=== PATIENT | male | born 1950 | race Caucasian/White ===

== ENCOUNTER → 2017-02-19 | Outpatient (CLI) | payer OTHER ==
[~2017-02-19] MED LIST: ASPI1TAB83 PO; ATOR-24 PO; LISI-461 PO; MULT-897 PO; OMEG10007 PO; OMEP20TA PO
[2017-02-19 10:16] LABS: BLOOD UREA NITROGEN 17 mg/dl (7-18); BUN/CREATININE RATIO 14.5 (10-20); CARBON DIOXIDE 31 mmol/L (21-32); CHLORIDE 103 mmol/L (98-107); CHOLESTEROL 152 mg/dl (0-200); GLUCOSE 106 mg/dl (70-99); POTASSIUM 4.4 mmol/L (3.5-5.1); SODIUM 140 mmol/L (136-145); TRIGLYCERIDES 176 mg/dl (0-150); VERY LOW DENSITY LIPOPROT CALC 35 mg/dl
[2017-02-19 10:17] LABS: CALCIUM 9.4 mg/dl (8.5-10.1)
[2017-02-19 10:23] LABS: CHOLESTEROL/HDL RATIO 4.1; HDL CHOLESTEROL 37 mg/dl; LDL CHOLESTEROL CALCULATED 80 mg/dl
== END | disposition home or self-care (01) ==
LOC: C.LAB 08:47
PROVIDERS: ATTEND Family Medicine
DX: Z00.00 Encounter for general adult medical examination without abnormal findings (principal); I10 Essential (primary) hypertension; E78.5 Hyperlipidemia, unspecified; C61 Malignant neoplasm of prostate

== ENCOUNTER → 2017-04-30 | Outpatient (CLI) | payer OTHER | END | disposition home or self-care (01) | LOC: C.LABSPEC 14:52 | PROVIDERS: ATTEND Urology | DX: R30.0 Dysuria (principal); R39.89 Other symptoms and signs involving the genitourinary system; R33.9 Retention of urine, unspecified ==

== ENCOUNTER → 2017-05-22 | Outpatient (CLI) | payer OTHER | END | disposition home or self-care (01) | LOC: C.LAB 07:06 | PROVIDERS: ATTEND Urology | DX: C61 Malignant neoplasm of prostate (principal) ==

== ENCOUNTER → 2017-12-01 | Outpatient (CLI) | payer OTHER | END | disposition home or self-care (01) | LOC: C.LABBC 07:12 | PROVIDERS: ATTEND Urology | DX: R97.20 Elevated prostate specific antigen [PSA] (principal) ==

== ENCOUNTER → 2018-01-19 | Outpatient (CLI) | payer OTHER ==
[2018-01-19 11:55] LABS: BLOOD UREA NITROGEN 24 mg/dl (7-18); CREATININE 1.38 mg/dl (0.60-1.40)
== END | disposition home or self-care (01) ==
LOC: C.LABBC 07:20
PROVIDERS: ATTEND Urology
DX: R97.20 Elevated prostate specific antigen [PSA] (principal)

== ENCOUNTER → 2018-02-02 | Outpatient (CLI) | payer OTHER ==
[~2018-02-02] MED LIST changes: +GADAVIST IV PRN
--- NOTE | 2018-02-02 11:26 | DIAGNOSTIC IMAGING REPORT ---
PROSTATE MRI COMBO CLINICAL HISTORY: 68 years-old Male presenting with R97.20 Elevated prostate specific antigen (PSA)AUTH# [id number] 6. History of prostate cancer with elevated PSA TECHNIQUE: Multisequence, multiplanar MR imaging of the prostate was performed before and after the administration of intravenous contrast. Additional postprocessing was performed on a separate [employer] workstation by the radiologist for 3-D volumetric segmentation of the prostate and contouring of region(s) of interest (WALLY) for targeting. IV contrast: 9.9 mL Gadavist. COMPARISON: None. FINDINGS: Prostate: The prostate measures 4.2 x 5.7 x 6.0 cm (DynaCAD prostate boundary segmentation volume 59.9 mL). Moderate changes of benign prostatic hyperplasia. Precontrast T1 weighted imaging demonstrates no evidence of intrinsic T1 hyperintensity to suggest hemorrhage. Suspicious lesion(s) described below: Lesion (DynaCAD WALLY) 1: Location: Left posterior transition zone at the mid gland. The lesion does not extend across the midline. Size: 1.1 x 0.8 mm (as measured on ADC for PZ lesion and T2WI for TZ lesion) T2W: 3: Heterogeneous signal intensity with obscured margins. No evidence of extraprostatic extension, seminal vesicle invasion, or neurovascular bundle involvement. DWI: 3. Focal mildly/moderately hypointense on ADC and isointense/mildly hyperintense on high b-value DWI. DCE: Positive. Focal enhancement corresponding to a suspicious finding, earlier or contemporaneous with adjacent normal tissue. PI-RADS: 3. The presence of clinically significant cancer is equivocal. Seminal vesicles normal. Bladder: Bladder wall thickening likely indicating chronic outlet obstruction. Bowel: Visualized portion of the rectum normal. Peritoneum: No free fluid in the pelvis. Lymph nodes: No lymphadenopathy in the visualized portion of the pelvis. Vasculature: Iliac vessels patent. Abdominal wall: Trace amount of fluid within the right inguinal canal and the upper right scrotum. Osseous structures: Normal bone marrow signal intensity. IMPRESSION: 1. 1.1 cm lesion in the left posterior transition zone at the mid gland. PI-RADS: 3. The presence of clinically significant cancer is equivocal. This lesion has been segmented for targeted biopsy. 2. Benign prostatic hyperplasia. Electronically signed by: Catracho Contreras M.D. 02/02/2018 3:58 PM Dictated Date/Time: 02/02/2018 9:49 AM
== END | disposition home or self-care (01) ==
LOC: C.MRIBC 07:53
PROVIDERS: ATTEND Urology
DX: R97.20 Elevated prostate specific antigen [PSA] (principal); N42.9 Disorder of prostate, unspecified; N40.0 Benign prostatic hyperplasia without lower urinary tract symptoms

== ENCOUNTER → 2018-02-26 | Outpatient (CLI) | payer OTHER ==
[~2018-02-26] MED LIST changes: -GADAVIST IV PRN
== END | disposition home or self-care (01) ==
LOC: C.LAB 07:52
PROVIDERS: ATTEND Urology
DX: C61 Malignant neoplasm of prostate (principal); N41.9 Inflammatory disease of prostate, unspecified

== ENCOUNTER → 2018-05-27 | Outpatient (CLI) | payer OTHER ==
[2018-05-27 10:54] LABS: BASO % 0.3 %; BASO ABS # 0.02 K/uL (0-0.2); EOS % 2.6 %; EOS ABS # 0.19 K/uL (0-0.5); HEMATOCRIT 40.1 % (42-52); HEMOGLOBIN 13.6 g/dL (14.0-18.0); IG# 0.02 K/uL (0.00-0.02); LYMPH % 32.1 %; LYMPH ABS # 2.34 K/uL (1.2-3.4); MEAN CELL VOLUME 87.9 fL (80-100); MEAN CORPUSCULAR HEMOGLOBIN 29.8 pg (25-34); MEAN CORPUSCULAR HGB CONC 33.9 g/dl (32-36); MEAN PLATELET VOLUME 10.1 fL (7.4-10.4); MONO % 7.7 %; MONO ABS # 0.56 K/uL (0.11-0.59); NEUT ABS # 4.16 K/uL (1.4-6.5); PLATELET COUNT 176 K/uL (130-400); RED CELL DISTRIBUTION WIDTH CV 13.4 % (11.5-14.5); WHITE BLOOD COUNT 7.29 K/uL (4.8-10.8)
[2018-05-27 11:22] LABS: ALBUMIN 3.6 gm/dl (3.4-5.0); ALKALINE PHOSPHATASE 88 U/L (45-117); ALT/SGPT 59 U/L (12-78); AST/SGOT 34 U/L (15-37); BLOOD UREA NITROGEN 21 mg/dl (7-18); CALCIUM 8.6 mg/dl (8.5-10.1); CARBON DIOXIDE 27 mmol/L (21-32); CHOLESTEROL 122 mg/dl (0-200); CREATININE 1.59 mg/dl (0.60-1.40); GLUCOSE 108 mg/dl (70-99); LDL CHOLESTEROL CALCULATED 53 mg/dl; POTASSIUM 4.6 mmol/L (3.5-5.1); SODIUM 138 mmol/L (136-145); TOTAL PROTEIN 7.2 gm/dl (6.4-8.2)
[2018-05-27 11:55] LABS: HEMOGLOBIN A1C 5.7 % (4.5-5.6)
== END | disposition home or self-care (01) ==
LOC: C.LABBC 07:02
PROVIDERS: ATTEND Neuromusculoskeletal Medicine & OMM
DX: I10 Essential (primary) hypertension (principal); E78.5 Hyperlipidemia, unspecified; R73.01 Impaired fasting glucose; E66.9 Obesity, unspecified

== ENCOUNTER 2019-02-03 10:39 | Inpatient (IN) ==
--- NOTE | 2018-12-08 10:24 | PAT Medication Instructions ---
Medication Instructions Date of Service December 08, 2018 Home Medications aspirin [Aspirin Low Dose] 81 mg PO QAM atorvastatin 40 mg PO HS fish oil-dha-epa 1,200 mg PO BID lisinopril 10 mg PO QAM meloxicam 15 mg PO Q OTHER DAY multivitamin 1 tab PO QAM omeprazole 20 mg PO QAM ASK your surgeon for instructions meloxicam 15 mg PO Q OTHER DAY STOP taking 2 weeks before surgery (or as soon as possible if surgery is within 2 weeks) fish oil-dha-epa 1,200 mg PO BID DO NOT take the morning of surgery lisinopril 10 mg PO QAM multivitamin 1 tab PO QAM Take morning of surgery With a small sip of water, OTHERWISE NOTHING TO EAT OR DRINK AFTER MIDNIGHT: aspirin [Aspirin Low Dose] 81 mg PO QAM omeprazole 20 mg PO QAM Take evening before surgery atorvastatin 40 mg PO HS Other Notes If you have any questions please call us at [phone] or [phone] or [phone] or [phone]
--- NOTE | 2018-12-08 11:30 | Anesthesiology Consultation ---
Date of Service December 08, 2018 Assessment & Plan (1) Encounter for pre-operative examination: Chart Review Chart Review: Acceptable Risk for Surgery and Patient seen in Pre Admission Testing Teaching & Discussion Pre-Anesthesia Teaching/Discussion Notes: Instructed NPO after midnight before surgery,except medications with 15 cc of water. Medication instructions provided according to the PAT guidelines. History Surgery Operation Date: 01/06/19 07:00 Proposed Procedures p Right Reverse Total Shoulder Arthroplasty - Tod Devine, Height/Weight Height: 5 ft 5 in Weight: 102.7 kg Allergies Allergy/AdvReac Type Severity Reaction Status Date / Time No Known Allergies Allergy Unknown Verified 12/01/18 09:43 Medications Home Medications Medication Instructions Recorded Confirmed Last Taken aspirin [Aspirin Low Dose] 81 mg PO QAM 12/01/18 12/01/18 Unknown atorvastatin 40 mg PO HS 12/01/18 12/01/18 Unknown fish oil-dha-epa 1,200 mg PO BID 12/01/18 12/01/18 Unknown lisinopril 10 mg PO QAM 12/01/18 12/01/18 Unknown meloxicam 15 mg PO Q OTHER DAY 12/01/18 12/01/18 Unknown multivitamin 1 tab PO QAM 12/01/18 12/01/18 Unknown omeprazole 20 mg PO QAM 12/01/18 12/01/18 Unknown Past Medical History Medical History CKD (chronic kidney disease) BASELINE CREATININE 1.5-1.6 RANGE PER CHART REVIEW GERD (gastroesophageal reflux disease) CONTROLLED High cholesterol History of prostate cancer NO CHEMO OR RADIATION Hypertension Obesity Past Surgical History Surgical History History of back surgery L4-L5 LAMINECTOMY= 11/11/15= GRADE 1 VIEW, MAC 4, ETT 8 AT [facility] History of carpal tunnel release of both wrists History of total right knee replacement X2 Hx of foot surgery LEFT Hx of prostate biopsy X3 Past Anesthesia History No Hx of Anesthesia Complications and No Family Hx of Anesthesia Complications History of PONV No Motion Sickness Screening History of Motion Sickness: No Social History Smoking Status: Never smoker Do You Dip or Chew Tobacco: Yes (1 PACK PER 7 DAYS X YEARS; ADVISED NOT TO CHEW AM DOS) Hx Alcohol Use: Yes Alcohol type: beer and wine alcohol intake frequency: holidays/special occasions only Hx Substance Use: No Exercise / Class Metabolic Activity III < 4 Walking/Shop/Light housework Review of Systems Patient denies chest pain, shortness of breath, cough, wheezing, palpitations. Physical Exam Vital Signs VITALS BP 136/81 P 73 TEMP 97.8 SP02 94%RA RESP 18 PHYSICAL Mildly decreased cervical extension Full TMJ range of motion. TMD 3.5 finger breaths Mallampati Score 2 Dentition: poor dentition; several "worn" teeth, missing molars, several caps "all over" Lungs: clear throughout to auscultation Cardiac: regular rate and rhythm, no murmurs noted Spine: normal Carotid arteries: negative bruit Extremities: no edema Trimmed hernandez Short neck* Testing Electrocardiogram Date: 12/08/18 NSR at 64bpm. Inferior infarct (Inferior infarct cited on 02/12/2006 EKG at [facility] per cardio). Chest X-Ray Date: 12/08/18 Findings: + NAD The cardiomediastinal heart is top normal for projection, and there is atherosclerotic calcification of the thoracic aorta. There are healed right- sided rib fractures. Laboratory Results 12/08/18 11:46 12/08/18 11:46 Blood Type AB Negative 12/08/18 11:46 Antibody Screen NEGATIVE 12/08/18 11:46 PT 10.3 Seconds (9.0-12.0) 12/08/18 11:46 INR 1.0 (0.9-1.1) 12/08/18 11:46 APTT 25.6 Seconds (21.0-31.0) 12/08/18 11:46 12/08/18 GFR 45.0
--- NOTE | 2018-12-08 12:26 | XRay Report ---
TWO VIEW CHEST CLINICAL HISTORY: Preoperative examination. FINDINGS: PA and lateral chest radiographs are compared to study dated 11/11/2015. The cardiomediastin al heart is top normal for projection, and there is atherosclerotic calcification of the thoracic aor ta. The lungs and pleural spaces are clear. There is no pneumothorax. Degenerative change is noted t hroughout the thoracic spine. There are healed right-sided rib fractures. IMPRESSION: No active disease in the chest. Electronically signed by: Shmuel Sánchez M.D. 12/08/2018 12:24 PM
[2018-12-08 13:21] LABS: Basophils # (auto) 0.01 K/uL (0-0.2); Basophils % (auto) 0.1 %; Eosinophils # (auto) 0.08 K/uL (0-0.5); Eosinophils % (auto) 1.2 %; Hematocrit (blood only) 39.7 % (42-52); Hemoglobin 13.5 g/dL (14.0-18.0); Immature Granulocytes # (auto) 0.02 K/uL (0.00-0.02); Immature Granulocytes % (auto) 0.3 %; Lymphocytes # (auto) 2.11 K/uL (1.2-3.4); Lymphocytes % (auto) 31.6 %; Mean Corpuscular Volume 85.7 fL (80-100); Mean Platelet Volume 10.2 fL (7.4-10.4); Neutrophils # (auto) 4.05 K/uL (1.4-6.5); Neutrophils % (auto) 60.8 %; Platelet Count 171 K/uL (130-400); RDW Coefficient of Variation 13.4 % (11.5-14.5); RDW Standard Deviation 41.4 fL (36.4-46.3); Red Blood Count 4.63 M/uL (4.7-6.1); White Blood Count 6.67 K/uL (4.8-10.8)
[2018-12-08 13:38] LABS: Partial Thromboplastin Ratio 0.9; Partial Thromboplastin Time 25.6 Seconds (21.0-31.0); Prothrombin Time 10.3 Seconds (9.0-12.0)
[2018-12-08 13:41] LABS: BUN Creatinine Ratio 14.7 (10-20); Calcium 8.6 mg/dl (8.5-10.1); Est GFR (African American) 52.1; Potassium 4.3 mmol/L (3.5-5.1)
--- NOTE | 2019-02-02 20:31 | History & Physical Report ---
Date of Service February 02, 2019 Assessment & Plan (1) Rotator cuff arthropathy of right shoulder: We will proceed with a reverse right shoulder arthroplasty. Postoperatively he will be placed in an arm sling and kept overnight for postop medical management. He plans to use [facility] discharge. Present on Admission?: Yes History of Present Illness Chief Complaint: Rotator cuff arthropathy of the right shoulder Primary Care Provider: Erick Jane DO Hasmukh is a pleasant 68-year-old male who is been having a greater than 10-year history of increasing right shoulder pain and weakness. He does not recall any traumas. Over the last 10 years his shoulder has been getting worse. He has trouble doing anything above chest level. X-rays and clinical examination have been diagnostic for rotator cuff arthropathy of the right shoulder. After failing conservative treatment, he has elected proceed with a right reverse shoulder arthroplasty. Allergies Allergy/AdvReac Type Severity Reaction Status Date / Time No Known Allergies Allergy Unknown Verified 02/01/19 07:39 Home Medications Home Medications Medication Instructions Recorded Confirmed Type aspirin [Aspirin Low Dose] 81 mg PO QAM 12/01/18 02/01/19 History atorvastatin 40 mg PO HS 12/01/18 02/01/19 History fish oil-dha-epa 1,200 mg PO BID 12/01/18 02/01/19 History lisinopril 10 mg PO QAM 12/01/18 02/01/19 History meloxicam 15 mg PO Q OTHER DAY 12/01/18 02/01/19 History multivitamin 1 tab PO QAM 12/01/18 02/01/19 History omeprazole 20 mg PO QAM 12/01/18 02/01/19 History Past Med/Surg History Social History Preferred Language: Portuguese Communication Ability: Effective Clothing Worker Required: No Beliefs That Will Affect Care: None Current Living Situation: Spouse Other Information That Helps Us Care for You: No Feels Safe at Home: Yes Safety Concerns: Feels Safe At This Time Smoking Status: Never smoker Tobacco Type: smokeless tobacco Do You Dip or Chew Tobacco: Yes (1 PACK PER 7 DAYS X YEARS; ADVISED NOT TO CHEW AM DOS) Second Hand Exposure: No Tobacco Cessation Education Requested by Patient: No Hx Alcohol Use: Yes Alcohol type: beer and wine Hx Substance Use: No Review of Systems All systems reviewed & are unremarkable except as noted in HPI & below Physical Exam Constitutional: WD/WN, vitals as above Eyes: PERRL, conjunctivae normal, anicteric sclerae ENMT: external ear and nose normal, oropharynx normal Neck: trachea midline, no thyromegaly Respiratory: normal respiratory effort Cardiovascular: RRR, no murmur, no edema Gastrointestinal (Abdomen): normal bowel sounds, soft, nontender, no hepatosplenomegaly Musculoskeletal: Physical examination of the right shoulder reveals decreased range of motion and significant weakness. There is tenderness palpation along the anterior glenohumeral joint line. The right upper extremity is neurovascularly intact. Psychiatric: A+Ox3, euthymic affect Results & Data Diagnostic Findings Radiographs of the right shoulder show some signs of osteoarthritis with blunting of the greater tuberosity and some superior migration of the humeral head on the glenoid.
[~2019-02-03 10:39] MED LIST changes: +ACETAMINOPHEN 500 MG TAB PO SCH; -ASPI1TAB83 PO; -ATOR-24 PO; +BUPIVACAINE 0.5 % 5 MG/1 ML PF 10ML VIAL ONE; +CEFAZOLIN 2000MG 2,000 MG/15 ML SYR IV SCH; +FAMOTIDINE 20 MG TAB PO SCH; +GABAPENTIN 300 MG PO SCH; -LISI-461 PO; +LR 15ML/HR IV SCH; +LR 500ML BOLUS IV SCH; +LR 60ML/HR IV SCH; -MULT-897 PO; -OMEG10007 PO; -OMEP20TA PO; +ROPIVACAINE 0.5% HCL/PF 150 MG, BUPIVACAINE 0.5% MPF 30 ML, EPINEPHrine 30MG/30ML (OR U... INFIL SCH; +TRANEXAMIC ACID 1,000 MG **IV Intra-op IV SCH; +TRANEXAMIC ACID 1,000 MG **IV Pre-op IV SCH
--- NOTE | 2019-02-03 12:26 | History & Physical Bridge Note ---
Date of Service February 03, 2019 History & Physical Bridge Note I have examined the patient, reviewed the History & Physical and in the interval since the performance of the History & Physical I have noted the following changes of clinical significance: no changes noted
[2019-02-03] MEDS ORDERED: fentaNYL citrate 100 MCG/2 ML VIAL ONE (12:28)
[2019-02-03] MEDS ORDERED: MIDAZOLAM HCL 1 MG/ML 2ML VIAL ONE (12:28)
[2019-02-03] MEDS ORDERED: ORTHO JOINT ANESTHETIC ONE (12:51)
[2019-02-03] MEDS ORDERED: POVIDONE-IODINE OP SOLN 30 ML BTL ONE (12:51)
[2019-02-03] MEDS ORDERED: ePHEDrine sulfate 50 MG/ML AMP IV PRN (13:24)
[2019-02-03] MEDS ORDERED: ONDANSETRON INJ 2 MG/ML 2 ML VIAL IV PRN ×2 (13:24→17:37)
[2019-02-03] MEDS ORDERED: fentaNYL citrate 100 MCG/2 ML VIAL IV PRN (13:24)
[2019-02-03] MEDS ORDERED: ATROPINE SULFATE 0.1 MG/ML 10ML SYR IV PRN (13:24)
[2019-02-03] MEDS ORDERED: DEXAMETHASONE SOD INJ 4 MG/ML VIAL ONE (14:30)
[2019-02-03] MEDS ORDERED: PROPOFOL IV EMULSION 10 MG/ML 20 ML VIAL IV ONE (14:30)
[2019-02-03] MEDS ORDERED: ONDANSETRON INJ 2 MG/ML 2 ML VIAL ONE (14:30)
[2019-02-03] MEDS ORDERED: SUCCINYLCHOLINE CHLORIDE 20 MG/ML 10 ML VIAL ONE (14:30)
[2019-02-03] MEDS ORDERED: ROCURONIUM BROMIDE 10 MG/ML 5 ML VIAL ONE (14:30)
--- NOTE | 2019-02-03 15:45 | Operative Report ---
Post Operative Report Pre & Post Diagnosis Operation Date: 02/03/19 12:40 Pre-Op Diagnosis: Chronic Rotator Cuff Tear, Right Shoulder Post-Op Diagnosis: Chronic Rotator Cuff Tear, Right Shoulder Procedure Operation Date: 02/03/19 12:40 Actual Procedures p Right Reverse Total Shoulder Arthroplasty(Right) - Tod Devine DO Surgeon Tod Devine DO Hop Grower Tod Madden PAC Estimated Blood Loss 350 Findings Consistent with Post-Op Diagnosis Specimens Right humeral head Complications none Disposition Disposition: Recovery Room Indications Hasmukh is a pleasant 69-year-old male who is been complaining of chronic increasing right shoulder pain. X-rays and clinical examination were diagnostic for rotator cuff arthropathy of the right shoulder. After failing conservative treatment, he elected to proceed with a reverse right shoulder arthroplasty. Description of Procedure Implants used: I used a [employer]omet Comprehensive reverse total shoulder arthroplasty system with a size 12 press fit mini humeral stem, a standard humeral tray and a standard humeral bearing, a 28 mm standard baseplate with a 6.5 mm central screw and superior and inferior locking screws, and a size 41 mm eccentric glenosphere. The patient arrived at [facility] for the above procedure. There were seen in the preoperative holding area and the operative extremity was identified and signed. They were given a preoperative antibiotic and an interscalene nerve block. They were taken back to the operating room, laid on table in supine position, and put under general anesthesia. They were then put into the beachchair position. The shoulder was then prepped and draped in sterile fashion. A timeout was done and the patient in the operative extremity was properly identified. A deltopectoral approach was used. Dissection was taken down through the fascia and the deltoid was retracted laterally and the conjoined tendon was retracted medially. The anterior shoulder was exposed. The long head of the biceps tend on was tenodesed to the upper border of the pectoralis major. The subscapularis was then released off the lesser tuberosity with a centimeter of cuff tissue remaining. The inferior capsule was released and the humeral head was dislocated. A canal finding reamer was sent down the center of the humeral canal. Sequential reaming up to a size 12 reamer was done. Off that reamer, a proximal humeral resection guide was placed. The proximal humerus was resected at 135 of inclination and 25 of retroversion. Osteophytes were then removed and the glenoid was exposed. Time was spent doing a complete capsular and labral release. A Profyle signature guide was then attached onto the anterior rim of the glenoid. A 3.2 mm Steinmann pin was then placed in the reverse total shoulder arthroplasty hole. The glenoid baseplate was then reamed. The final size 28 mm standard baseplate was then impacted in the place. A 6.5 mm central screw was then placed followed by superior and inferior locking screws. A 41 mm eccentric glenoid sphere was then impacted into place. Surrounding soft tissues were then injected with 100 cc an orthopedic pain control cocktail. The proximal humerus was then exposed. Sequential broaching of the humerus up to a size 12 broach was done. Off that broach a standard humeral tray was trialed. The shoulder was then reduced, brought through a full range of motion and felt to be stable. The shoulder was then dislocated and the broach was removed. The final size 12 mini press-fit humeral stem was then impacted into place. A standard humeral bearing was then snapped onto a standard humeral tray and the ring-lock mechanism was engaged. The humeral tray was then impacted onto the humeral stem. The shoulder was once again reduced, brought through a full range of motion and felt to be stable. The subscapularis was then tenodesed back to the lesser tuberosity with transosseous FiberWire sutures and side to side sutures with the arm in 45 of external rotation. A dilute betadyne lavage was then done for 3 minutes. The joint was then irrigated with normal saline solution. Hemostasis was obtained. The skin was then closed with 2-0 Vicryl, 3-0V lock suture, and rolf. A soft dressing and a regular arm sling was placed. The patient was then extubated and transferred to a hospital bed. They were taken to the postanesthesia care unit in stable condition. They tolerated the procedure well. I attest to the content of the Intraoperative Record and any orders documented therein. Any exceptions are noted below.
--- NOTE | 2019-02-03 17:03 | XRay Report ---
XR shoulder RT min 2V routine CLINICAL HISTORY: Post shoulder surgery COMPARISON STUDY: Right shoulder CT 01/04/2019. FINDINGS: Status post reversal total shoulder arthroplasty. The hardware appears intact. No fracture or dislocation. Skin rolf are in place. Old, healed right-sided rib fracture. IMPRESSION: Status post right reverse total shoulder arthroplasty. No evidence for hardware complica tion. Electronically signed by: Celestine Bishop M.D. 02/03/2019 5:02 PM
--- NOTE | 2019-02-03 17:04 | Anesthesiology Progress Note ---
Date of Service February 03, 2019 Anesthesia Post Procedure Vital Signs Vital Signs: Temp Pulse Pulse Resp BP Pulse Ox 02/03/19 16:50 36.2 C L 54 L 14 144/83 H 96 02/03/19 16:40 55 L 14 163/92 H 94 02/03/19 16:30 48 L 16 141/105 H 100 02/03/19 16:20 52 L 16 152/97 H 100 02/03/19 16:11 36.5 C 51 L 16 164/90 H 100 02/03/19 11:06 36.5 C 59 L 20 139/86 97 Notes Mental Status: alert / awake / arousable and participated in evaluation Patient Amnestic to Procedure: Yes Nausea / Vomiting: adequately controlled Pain: adequately controlled Airway Patency, RR, SpO2: stable & adequate BP & HR: stable & adequate Hydration State: stable & adequate Anesthetic Complications: no major complications apparent and Pt Satisfied with anesthetic care
[2019-02-03] MEDS ORDERED: NALOXONE HCL 0.4 MG/1 ML VIAL/CARP IV PRN (17:37)
[2019-02-03] MEDS ORDERED: METOCLOPRAMIDE HCL INJ 5 MG/ML 2 ML VIAL IV PRN (17:37)
[2019-02-03] MEDS ORDERED: HYDROmorphone INJ 0.5 MG/0.5 ML SYR IV PRN (17:37)
[2019-02-03] MEDS ORDERED: SODIUM CHLORIDE 0.9% 1000ML 1,000 ML IV SCH (17:37)
[2019-02-03] MEDS ORDERED: MAGNESIUM HYDROXIDE SUSP 30 ML UDC PO PRN (17:37)
[2019-02-03] MEDS ORDERED: BISACODYL 10 MG SUPP PR PRN (17:37)
[2019-02-03] MEDS ORDERED: OXYCODONE HCL IR 5 MG TAB (IMMEDIATE RELEASE) PO PRN (17:37)
[2019-02-03] MEDS: DOCUSATE SODIUM 100 MG CAP PO SCH (20:21)
[2019-02-03] MEDS: KETOROLAC TROMETHAMINE 15 MG/ML VIAL IV SCH ×2 (20:22→23:27)
[2019-02-03] MEDS ORDERED: SENNA 8.6 MG TAB PO SCH (21:00)
[2019-02-03] MEDS ORDERED: ATORVASTATIN 40 MG TAB PO SCH (21:00)
[2019-02-03] MEDS: ACETAMINOPHEN 500 MG TAB PO SCH (21:33)
[2019-02-03] MEDS: CEFAZOLIN 2000MG 2,000 MG/15 ML SYR IV SCH (21:34)
[2019-02-04] MEDS: CEFAZOLIN 2000MG 2,000 MG/15 ML SYR IV SCH (05:48)
[2019-02-04] MEDS: ACETAMINOPHEN 500 MG TAB PO SCH (05:48)
[2019-02-04] MEDS: KETOROLAC TROMETHAMINE 15 MG/ML VIAL IV SCH (05:48)
[2019-02-04 06:35] LABS: Basophils # (auto) 0.01 K/uL (0-0.2); Basophils % (auto) 0.1 %; Hematocrit (blood only) 36.1 % (42-52); Hemoglobin 12.3 g/dL (14.0-18.0); Immature Granulocytes # (auto) 0.05 K/uL (0.00-0.02); Immature Granulocytes % (auto) 0.3 %; Lymphocytes # (auto) 1.32 K/uL (1.2-3.4); Mean Corpuscular Hgb Conc 34.1 g/dL (32-36); Mean Platelet Volume 9.7 fL (7.4-10.4); Monocytes # (auto) 0.68 K/uL (0.11-0.59); Monocytes % (auto) 4.6 %; Neutrophils # (auto) 12.57 K/uL (1.4-6.5); Platelet Count 182 K/uL (130-400); RDW Coefficient of Variation 13.3 % (11.5-14.5); RDW Standard Deviation 42.7 fL (36.4-46.3); Red Blood Count 4.15 M/uL (4.7-6.1); White Blood Count 14.63 K/uL (4.8-10.8)
[2019-02-04 07:05] LABS: Calcium 8.8 mg/dl (8.5-10.1); Creatinine Clr Calc Pharmacy 41.3 ml/min; Est GFR (African American) 42.4; Est GFR (Non-African American) 36.6; Potassium 4.6 mmol/L (3.5-5.1)
[2019-02-04 07:14] VITALS: BP 139/80; PULSE 58; TEMP 97.5; O2SAT 97
--- NOTE | 2019-02-04 07:44 | Orthopedic Progress Note ---
Date of Service February 04, 2019 Assessment & Plan (1) Rotator cuff arthropathy of right shoulder: Overall is doing very well. Is not having much pain in the shoulder. Is mostly having some back pain at this point but that should resolve on its own. By physical therapy this morning for range of motion exercises. He can be discharged to home later today with oxycodone for pain. He plans to follow-up with outpatient physical therapy at [facility] ([place] He will follow-up with orthopedics in 2 to 3 weeks. Present on Admission?: Yes Subjective Hasmukh was seen and examined at bedside this morning. Overall is doing very well. He is not having any pain in the right shoulder. He is happy with his progress this point. He is having some back pain. It is mostly musculoskeletal back pain. His vital signs of all been stable. He has no other complaints. Physical Exam Musculoskeletal: On physical examination of the right shoulder, the dressing is clean and dry. He is wearing a sling as instructed. He still has some numbness in his right hand. He cannot dorsiflex his wrist yet secondary to the block. Results & Data Vital Signs (Past 12 Hours) Vital Signs Temp Pulse Pulse Resp BP Pulse Ox 02/04/19 07:12 36.4 C L 58 L 16 139/80 97 02/04/19 03:10 36.6 C 66 18 142/78 H 95 02/03/19 22:53 36.5 C 55 L 16 136/68 94 02/03/19 20:05 36.6 C 58 L 16 140/73 97 Laboratory Results H & H 12/08/18 02/04/19 Range/Units 11:46 06:05 Hgb 13.5 L 12.3 L (14.0-18.0) g/dL Hct 39.7 L 36.1 L (42-52) % Coagulation 12/08/18 Range/Units 11:46 INR 1.0 (0.9-1.1) Diagnostic Findings Postoperative x-rays of the right shoulder show the prosthesis to be in anatomic alignment without any evidence of fracture, dislocation, or loosening.
--- NOTE | 2019-02-04 07:45 | Discharge Summary ---
Date of Service February 04, 2019 Admission HPI Per Admitting Provider Hasmukh is a pleasant 68-year-old male who is been having a greater than 10-year history of increasing right shoulder pain and weakness. He does not recall any traumas. Over the last 10 years his shoulder has been getting worse. He has trouble doing anything above chest level. X-rays and clinical examination have been diagnostic for rotator cuff arthropathy of the right shoulder. After failing conservative treatment, he has elected proceed with a right reverse shoulder arthroplasty. Specialty Data Orthopedic H & H 12/08/18 02/04/19 Range/Units 11:46 06:05 Hgb 13.5 L 12.3 L (14.0-18.0) g/dL Hct 39.7 L 36.1 L (42-52) % Coagulation 12/08/18 Range/Units 11:46 INR 1.0 (0.9-1.1) Discharge Data Consultations 02/03/19 17:37 Consult Case Management - Discharge Planning Routine Procedures Performed Operation Date: 02/03/19 12:40 Actual Procedures p Right Reverse Total Shoulder Arthroplasty(Right) - Tod Devine DO Hospital Course (1) Rotator cuff arthropathy of right shoulder: On February 03, 2019 Hasmukh arrived at [facility] and underwent a reverse right shoulder arthroplasty without complication. He had a general anesthetic and a right interscalene nerve block. Postoperatively he was placed in an arm sling and discharged to general orthopedic floors. His hospital course is uneventful. On postop day #1 his H&H was stable and his pain was well controlled. He was having a little bit of muscular pain in his back but that is about it. He was seen by physical therapy and able to do some range of motion exercises. Was then discharged home with outpatient physical therapy at [facility]. He will follow-up with orthopedics in 2 to 3 weeks. Discharge Instructions Home Medications Medication Instructions Recorded Confirmed aspirin [Aspirin Low Dose] 81 mg PO QAM 12/01/18 02/03/19 atorvastatin 40 mg PO HS 12/01/18 02/03/19 fish oil-dha-epa 1,200 mg PO BID 12/01/18 02/03/19 lisinopril 10 mg PO QAM 12/01/18 02/03/19 meloxicam 15 mg PO Q OTHER DAY 12/01/18 02/03/19 multivitamin 1 tab PO QAM 12/01/18 02/03/19 omeprazole 20 mg PO QAM 12/01/18 02/03/19 Previous Rx's Medication Instructions Recorded oxycodone 5 - 10 mg PO Q4H PRN #40 tab 02/04/19
[2019-02-04] MEDS ORDERED: MULTIVITAMIN TAB PO SCH (09:00)
[2019-02-04] MEDS ORDERED: LISINOPRIL 10 MG TAB PO SCH (09:00)
[2019-02-04] MEDS ORDERED: PANTOprazole 40 MG TAB PO SCH (09:00)
[2019-02-04] MEDS ORDERED: ASPIRIN 81 MG ECTAB PO SCH (09:00)
[2019-02-04] MEDS: DOCUSATE SODIUM 100 MG CAP PO SCH (09:11)
--- NOTE | 2019-02-04 10:07 | Anesthesiology Progress Note ---
Date of Service February 04, 2019 Anesthesia Post Procedure Vital Signs Vital Signs: Temp Pulse Pulse Pulse Resp BP Pulse Ox 02/04/19 07:12 36.4 C L 58 L 16 139/80 97 02/04/19 03:10 36.6 C 66 18 142/78 H 95 02/03/19 22:53 36.5 C 55 L 16 136/68 94 02/03/19 20:05 36.6 C 58 L 16 140/73 97 02/03/19 19:07 36.4 C L 50 L 16 137/72 96 02/03/19 18:12 36.2 C L 02/03/19 18:00 47 L 16 158/85 H 100 02/03/19 17:35 48 L 16 145/82 H 100 02/03/19 16:50 36.2 C L 54 L 14 144/83 H 96 02/03/19 16:40 55 L 14 163/92 H 94 02/03/19 16:30 48 L 16 141/105 H 100 02/03/19 16:20 52 L 16 152/97 H 100 02/03/19 16:11 36.5 C 51 L 16 164/90 H 100 02/03/19 11:06 36.5 C 59 L 20 139/86 97 Pain Intensity Right Back: Pain Intensity: 3 Notes Mental Status: alert / awake / arousable and participated in evaluation Nausea / Vomiting: adequately controlled Pain: adequately controlled Airway Patency, RR, SpO2: stable & adequate BP & HR: stable & adequate Hydration State: stable & adequate
== END 2019-02-04 12:54 | disposition home or self-care (01) | DRG 483 ==
LOC: ASU 10:39 → 3E 16:13

== ENCOUNTER 2020-04-08 09:12 | Observation (INO) ==
--- NOTE | 2020-03-14 15:29 | PAT Medication Instructions ---
Medication Instructions Date of Service March 14, 2020 Home Medications Medication Instructions Recorded omeprazole 20 mg tablet,delayed 20 mg PO QAM #90 tab 02/19/20 release atorvastatin 40 mg tablet 40 mg PO HS #90 tab 03/01/20 lisinopril 10 mg tablet 10 mg PO QAM #90 tab 03/01/20 multivitamin 1 tab PO QAM omega-3 fatty acids 1,000 mg capsule 1,000 mg PO QAM omeprazole 20 mg tablet,delayed release 20 mg PO QAM atorvastatin 40 mg tablet 40 mg PO HS lisinopril 10 mg tablet 10 mg PO QAM aspirin 81 mg tablet,delayed release 81 mg PO QAM ASK your prescriber and surgeon aspirin 81 mg tablet,delayed release 81 mg PO QAM STOP taking 2 weeks before surgery (or as soon as possible if surgery is within 2 weeks) omega-3 fatty acids 1,000 mg capsule 1,000 mg PO QAM DO NOT take the morning of surgery multivitamin 1 tab PO QAM lisinopril 10 mg tablet 10 mg PO QAM Take morning of surgery With a small sip of water, OTHERWISE NOTHING TO EAT OR DRINK AFTER MIDNIGHT: omeprazole 20 mg tablet,delayed release 20 mg PO QAM Take evening before surgery atorvastatin 40 mg tablet 40 mg PO HS Other Notes If you have any questions please call us at [phone] or [phone] or [phone] or [phone]
--- NOTE | 2020-03-21 09:52 | Anesthesiology Consultation ---
Date of Service March 21, 2020 Assessment & Plan (1) Encounter for pre-operative examination: Per PAT assessment on 03/21: Travel screen negative. No known COVID-19 positive contacts. No history of COVID-19 testing. No current COVID-19 related symptoms. - S/P Left TKA: 11/09/19: SAB x1 attempt at L3-L4 + PNB at [facility] Chart Review Chart Review: Acceptable Risk for Surgery and Patient seen in Pre Admission Testing Teaching & Discussion Pre-Anesthesia Teaching/Discussion Notes: Instructed NPO after midnight before surgery,except medications with 15 cc of water. Medication instructions provided according to the PAT guidelines. History Surgery Operation Date: 04/08/20 07:30 Proposed Procedures p Right Total Knee Revision - Hilario Soliz MD Height/Weight Height: 5 ft 3 in Weight: 101.1 kg Allergies Allergy/AdvReac Type Severity Reaction Status Date / Time bee venom protein (honey bee) Allergy Unknown ITCHY Verified 03/14/20 11:23 venom-wasp Allergy Unknown ITCHY Verified 03/14/20 11:23 No Known Drug Allergies Allergy Verified 03/05/20 08:05 Medications Home Medications Medication Instructions Recorded Confirmed Last Taken multivitamin 1 tab PO QAM 12/01/18 03/14/20 02/12/20 omega-3 fatty acids 1,000 mg 1,000 mg PO QAM 08/26/19 03/14/20 02/12/20 capsule omeprazole 20 mg tablet,delayed 20 mg PO QAM #90 tab 02/19/20 03/14/20 Unknown release atorvastatin 40 mg tablet 40 mg PO HS #90 tab 03/01/20 03/14/20 Unknown lisinopril 10 mg tablet 10 mg PO QAM #90 tab 03/01/20 03/14/20 Unknown aspirin 81 mg tablet,delayed 81 mg PO QAM 03/05/20 03/14/20 Unknown release Past Medical History Medical History (Updated 03/21/20 @ 10:04 by Carlene Arboleda) CKD (chronic kidney disease) baseline creatinine 1.5-1.7 range per chart review with fluctuations as high as 1.9 on 08/2019- follows with Dr. 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, right Exercise / Class Metabolic Activity III < 4 Walking/Shop/Light housework Past Family History Family History Mother Myocardial infarction Coronary heart disease Father Prostate cancer Myocardial infarction Coronary heart disease Brother Prostate cancer Myocardial infarction Family history of diabetes mellitus Coronary heart disease Denies family history of Ovarian cancer Breast cancer Colorectal cancer Past Surgical History Surgical History History of back surgery L4-L5 LAMINECTOMY= 11/11/15= GRADE 1 VIEW, MAC 4, ETT 8 AT [facility] History of carpal tunnel release of both wrists History of colonoscopy History of left knee replacement History of total right knee replacement X2 History of total shoulder replacement Right TSA: 02/03/19: Grade view 2, MAC#4, ETT 7.5 + PNB at [facility] Hx of foot surgery LEFT Hx of prostate biopsy X3 Past Anesthesia History No Hx of Anesthesia Complications and No Family Hx of Anesthesia Complications History of PONV No Hx of PONV and No Hx of Motion Sickness Social History Smoking Status: Never smoker tobacco type: smokeless tobacco Do You Dip or Chew Tobacco: Yes (1 CAN PER 10 DAYS- ADVISED NPO AM DOS) Hx Alcohol Use: Yes Alcohol type: beer alcohol intake frequency: a few times a month Hx Substance Use: No Review of Systems Patient denies chest pain, shortness of breath, fever, chills, cough, wheezing, palpitations. Physical Exam Vital Signs VITALS BP 111/73 P 63 TEMP 98.2 SP02 95%RA RESP 18 PHYSICAL Full neck and c-spine range of motion. Full TMJ range of motion. TMD 3.5 finger breaths Mallampati Score 2 Dentition: poor dentition; several "worn" teeth, missing molars, repaired broken tooth Lungs: clear throughout to auscultation Cardiac: regular rate and rhythm, no murmurs noted Spine: normal Carotid arteries: negative bruit Extremities: no edema Trimmed hernandez. Short neck Testing Laboratory Results 03/21/20 10:10 PT 10.5 Seconds (9.0-12.0) 03/21/20 10:08 INR 1.0 (0.9-1.1) 03/21/20 10:08 APTT 27.2 Seconds (21.0-31.0) 03/21/20 10:08 Blood Type AB Negative 03/21/20 10:10 Antibody Screen NEGATIVE 03/21/20 10:10 02/28/20 SODIUM 139 POTASSIUM 3.9 CHLORIDE 106 CO2 26 BUN 20 CREATININE 1.66 (known hx CKD/at baseline) GLUCOSE 111 Electrocardiogram Date: 03/21/20 NSR with sinus arrhythmia at 61bpm. Inferior infarct (cited on or before 10/31/15 per center line cutter operator review)
[2020-03-21 10:42] LABS: Basophils # (auto) 0.01 K/uL (0-0.2); Basophils % (auto) 0.2 %; Eosinophils # (auto) 0.11 K/uL (0-0.5); Eosinophils % (auto) 1.7 %; Hematocrit (blood only) 41.5 % (42-52); Hemoglobin 13.7 g/dL (14.0-18.0); Immature Granulocytes # (auto) 0.01 K/uL (0.00-0.02); Immature Granulocytes % (auto) 0.2 %; Lymphocytes # (auto) 2.16 K/uL (1.2-3.4); Lymphocytes % (auto) 32.5 %; Mean Corpuscular Hemoglobin 28.7 pg (25-34); Mean Corpuscular Volume 86.8 fL (80-100); Mean Platelet Volume 9.9 fL (7.4-10.4); Monocytes # (auto) 0.47 K/uL (0.11-0.59); Monocytes % (auto) 7.1 %; Neutrophils # (auto) 3.89 K/uL (1.4-6.5); Neutrophils % (auto) 58.3 %; Platelet Count 184 K/uL (130-400); RDW Coefficient of Variation 14.5 % (11.5-14.5); RDW Standard Deviation 46.1 fL (36.4-46.3); Red Blood Count 4.78 M/uL (4.7-6.1); White Blood Count 6.65 K/uL (4.8-10.8)
[2020-03-21 11:03] LABS: Partial Thromboplastin Time 27.2 Seconds (21.0-31.0); Prothrombin Time 10.5 Seconds (9.0-12.0)
--- NOTE | 2020-03-21 16:58 | Electrocardiogram Report ---
Test Reason : Blood Pressure : / mmHG Vent. Rate : 061 BPM Atrial Rate : 061 BPM P-R Int : 170 ms QRS Dur : 084 ms QT Int : 406 ms P-R-T Axes : 064 008 -09 degrees QTc Int : 408 ms Normal sinus rhythm with sinus arrhythmia Inferior infarct (cited on or before 31-OCT-2015) Abnormal ECG When compared with ECG of 08-DEC-2018 11:49, No significant change was found Confirmed by Kali Ardon ([id number]) on 03/21/2020 4:58:18 PM Referred By: Hilario Soliz Confirmed By:Kali Ardon
--- NOTE | 2020-04-06 12:01 | History and Physical Report ---
DATE OF ADMISSION: 04/08/2020 CHIEF COMPLAINT: Right persistent knee pain, discomfort and instability. HISTORY OF PRESENT ILLNESS: The patient is a 70-year-old gentleman, long-term patient of mine, who presents for followup and treatment of his right knee. He has a history of a right knee replacement done by Dr. Lehman on this side back in 1995. I revised the patella component and did a polyethylene change in 2005 for some patellofemoral issues primarily. He has done pretty well, but over the past several years, he has developed increased pain, discomfort most significantly over the past several months. He is now about 5 months out from a left knee replacement and continues to be debilitated by his right knee pain, discomfort and swelling. He has been through extensive conservative treatment. We did aspirate his knee, which showed no signs of infection. 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 The patient now elected to proceed with surgical treatment. He has a limited walking tolerance. His knee gives out on him intermittently. PAST MEDICAL HISTORY: Past medical history significant for: 1. Hypertension. 2. Elevated cholesterol. 3. Gastroesophageal reflux disease. PAST SURGICAL HISTORY: Previous surgeries include: 1. Right total knee replacement done by Dr. Lehman in 1995 and revised by me with polyethylene exchange and patellar revision in 2005. 2. Back surgery in 2015. 3. Right shoulder surgery in 2019. 4. Right open knee surgery in 1970. 5. Left foot surgery. 6. Bilateral hand surgery. 7. Left total knee replacement done by myself on 11/09/2019. ALLERGIES: None. CURRENT MEDICINES: Include: 1. Tylenol. 2. Baby aspirin. 3. Atorvastatin 40 mg at nighttime. 4. Lisinopril 10 mg a day. 5. Meloxicam. 6. Multivitamin. 7. [place]-3. 8. Omeprazole. SOCIAL HISTORY: A 70-year-old male. He is very active. He is . He does not smoke. No significant alcohol intake. FAMILY HISTORY: Noncontributory. REVIEW OF SYSTEM: Negative for diabetes, neurologic problem, vascular problems or bleeding disorders. Denies any chest pain or shortness of breath. No history of DVT or PE. PHYSICAL EXAMINATION: GENERAL: Reveals a healthy, pleasant, middle-aged male. Looks younger than his stated age. HEENT: Benign. NECK: Supple, no lymphadenopathy. LUNGS: Clear to auscultation. HEART: Regular rate and rhythm. ABDOMEN: Soft, nontender, nondistended. EXTREMITIES: Grossly neurovascularly intact except as follows. Examination of the right knee reveals the patient walks with a significantly antalgic gait. He has got a well-healed incision on the front of his knee. He has got a moderate to large knee joint effusion. Range of motion is full extension to about 105 degrees of flexion. There is some laxity to varus and valgus stressing. He can do a straight leg raise. He has got no pain with hip motion. Examination of the left knee reveals a well-healed incision. Range of motion 0-120. Mild swelling. No instability. X-RAYS: X-rays of the right knee reviewed. It shows evidence of a posterior stabilized total knee arthroplasty. He has got clear lucencies around the femoral component, which had progressed over the past several years. The tibial component looks to be fixed, but there is osteolysis particularly medially. There is some mild polyethylene wear. ASSESSMENT: A 70-year-old gentleman, now 24 years out from index right knee replacement and revision of several components 14 years ago with what appears to be aseptic loosening of the femoral component and severe osteolysis and polyethylene wear. He has failed conservative treatment. We did do an infectious workup and aspirate his knee and that showed no growth. His lab parameters were all fairly normal as well. He has done well from his left knee replacement. PLAN: We talked about treatment. We are going to proceed with a right total knee revision. We are going to revise the entire knee. The risks and benefits of this procedure were explained to the patient include but not limited to DVT, PE, , infection, neurological injury, vascular injury, bleeding problem, pain, limited range of motion, incomplete relief of symptoms, fracture, leg length inequality, nerve palsy, persistent pain and infection. The patient understands and desires to proceed. Informed consent was obtained. The patient did have a workup and his knee aspirate revealed 1800 white cells with only a 48% polys. The culture has no growth. Creatinine is slightly elevated and we will be careful to follow his creatinine and limit his NSAIDs in the hospital. We will likely use aspirin for DVT prophylaxis. As far as discharge plans, he is planning to be discharged to home similar to his knee replacement. He will need to hold his lisinopril the morning of surgery. BESSY
[~2020-04-08 09:12] MED LIST changes: +BUPIVACAINE LIPOSOME/PF 266 MG, BUPIVACAINE/EPINEPHRINE 50 ML, SODIUM CHLORIDE 0.9% 30 ... INFIL SCH; +GABAPENTIN 300 MG CAP PO SCH; -GABAPENTIN 300 MG PO SCH; -LR 15ML/HR IV SCH; -LR 500ML BOLUS IV SCH; +LR 500ML BOLUS, THEN 15ML/HR IV SCH; +METOCLOPRAMIDE HCL 10 MG TABLET PO SCH; -ROPIVACAINE 0.5% HCL/PF 150 MG, BUPIVACAINE 0.5% MPF 30 ML, EPINEPHrine 30MG/30ML (OR U... INFIL SCH; -TRANEXAMIC ACID 1,000 MG **IV Intra-op IV SCH; -TRANEXAMIC ACID 1,000 MG **IV Pre-op IV SCH
[2020-04-08] MEDS ORDERED: MIDAZOLAM HCL 1 MG/ML 2ML VIAL ONE (10:27)
[2020-04-08] MEDS ORDERED: fentaNYL citrate 100 MCG/2 ML VIAL ONE (10:27)
--- NOTE | 2020-04-08 10:42 | History & Physical Bridge Note ---
Date of Service April 08, 2020 History & Physical Bridge Note I have examined the patient, reviewed the History & Physical and in the interval since the performance of the History & Physical I have noted the following changes of clinical significance: no changes noted
[2020-04-08] MEDS ORDERED: ONDANSETRON INJ 2 MG/ML 2 ML VIAL IV PRN ×2 (10:44→15:43)
[2020-04-08] MEDS ORDERED: fentaNYL citrate 100 MCG/2 ML VIAL IV PRN (10:44)
[2020-04-08] MEDS ORDERED: ATROPINE SULFATE 0.1 MG/ML 10ML SYR IV PRN (10:44)
[2020-04-08] MEDS ORDERED: ePHEDrine sulfate 50 MG/ML AMP IV PRN (10:44)
[2020-04-08] MEDS ORDERED: BUPIVACAINE/EPINEPHRINE 0.25% 1:200,000 30 ML VIAL ONE (10:45)
[2020-04-08] MEDS ORDERED: BACITRACIN INJ 50,000 UNIT VIAL ONE ×2 (10:45→13:09)
[2020-04-08] MEDS ORDERED: BUPIVACAINE LIPOSOME 1.3% 266 MG/20 ML VIAL ONE (10:45)
[2020-04-08] MEDS ORDERED: SODIUM CHLORIDE 0.9% PF 50 ML VIAL ONE (10:45)
[2020-04-08] MEDS ORDERED: TRANEXAMIC ACID / 0.7% NACL 1,000 MG/100 ML BAG IV STA (10:46)
[2020-04-08] MEDS ORDERED: VANCOMYCIN HCL 1000MG/20ML VIAL ONE (10:46)
[2020-04-08] MEDS ORDERED: TRANEXAMIC ACID / 0.7% NACL 1000MG/100ML BAG IV ONE (10:52)
[2020-04-08] MEDS ORDERED: PROPOFOL IV EMULSION 10 MG/ML 20 ML VIAL IV ONE ×3 (11:16→13:04)
[2020-04-08] MEDS ORDERED: PHENYLEPHRINE 100MCG/ML 5ML SYR ONE (12:11)
[2020-04-08] MEDS ORDERED: ePHEDrine sulfate 50 MG/ML SYR ONE (12:11)
--- NOTE | 2020-04-08 14:02 | Post Operative Brief Note ---
PG Immediate Post Op with CF Date of Surgery April 08, 2020 Pre & Post Diagnosis Operation Date: 04/08/20 10:40 Pre-Op Diagnosis: Right Total Knee Aseptic Loosening of the Femoral Component and Severe Osteolysis and Polyethylene Wear Post-Op Diagnosis: Right Total Knee Aseptic Loosening of the Femoral Component and Severe Osteolysis and Polyethylene Wear I identified the patient and participated in the time-out.: Yes Procedure Operation Date: 04/08/20 10:40 Actual Procedures p Right Total Knee Revision(Right) - Hilario Soliz MD Surgeon Hilario Soliz MD Director Outpatient Services Janet, PAC Estimated Blood Loss 100 Findings Consistent with Post-Op Diagnosis Fluids 2000 cc Specimens Specimen Description: Culture #1 right knee joint synovial fluid aerobic, anerobic, gram stain sent 1136 a. right knee synovium tissue removed hardware from right knee not sent to lab, per surgeon no mechanical defects. Drains Nunn Catheter ([id number]) Anesthesia Type Spinal MAC Complications none Disposition Accompanied Patient To Recovery: Yes Disposition: Recovery Room
--- NOTE | 2020-04-08 14:31 | XRay Report ---
TWO VIEWS RIGHT KNEE CLINICAL HISTORY: Postoperative examination. FINDINGS: AP and crosstable lateral portable views of the right knee are obtained. A right knee arthr oplasty is in near anatomic alignment. There are long tibial and femoral stems. There has been unders urface remodeling of the patella. No acute fracture is seen. There are expected postoperative changes around the knee including skin clips, soft tissue edema, and subcutaneous gas. Atherosclerotic calci fication is noted in the popliteal artery. IMPRESSION: Expected postoperative changes status post right knee arthroplasty. No acute fracture is seen. ACT 112: Negative or not required by law. Electronically signed by: Shmuel Sánchez M.D. 04/08/2020 2:30 PM
--- NOTE | 2020-04-08 14:55 | Anesthesiology Progress Note ---
Date of Service April 08, 2020 Anesthesia Post Procedure Vital Signs Vital Signs: Temp Pulse Pulse Resp BP BP Pulse Ox 04/08/20 14:40 55 L 14 129/71 97 04/08/20 14:30 58 L 14 123/68 96 04/08/20 14:20 56 L 15 104/60 95 04/08/20 14:10 66 16 105/70 94 04/08/20 14:03 97.2 F L 68 14 109/60 97 04/08/20 10:31 63 18 125/80 97 04/08/20 09:44 98.4 F 70 20 150/85 H 96 Pain Intensity Right Knee: Pain Intensity: 0 Transfer of Care Handoff Completed per policy Notes Mental Status: alert / awake / arousable and participated in evaluation Patient Amnestic to Procedure: Yes Nausea / Vomiting: adequately controlled Pain: adequately controlled Airway Patency, RR, SpO2: stable & adequate BP & HR: stable & adequate Hydration State: stable & adequate Neuraxial Anesthesia: was administered and sensory block is resolving Anesthetic Complications: no major complications apparent and Pt Satisfied with anesthetic care
[2020-04-08] MEDS ORDERED: MAGNESIUM HYDROXIDE SUSP 30 ML UDC PO PRN (15:43)
[2020-04-08] MEDS ORDERED: METOCLOPRAMIDE HCL INJ 5 MG/ML 2 ML VIAL IV PRN (15:43)
[2020-04-08] MEDS ORDERED: NO NSAIDS SCH (15:43)
[2020-04-08] MEDS ORDERED: TAMSULOSIN HCL 0.4 MG CAP PO PRN (15:43)
[2020-04-08] MEDS ORDERED: ALUMINUM/MAGNESIUM SUSP 30 ML UDC PO PRN (15:43)
[2020-04-08] MEDS ORDERED: NALOXONE HCL 0.4 MG/1 ML VIAL/CARP IV PRN (15:43)
[2020-04-08] MEDS ORDERED: bisacodyL 10 MG SUPP PR PRN (15:43)
[2020-04-08] MEDS: SODIUM CHLORIDE 0.9% 1000ML 1,000 ML IV SCH (16:52)
[2020-04-08] MEDS: ASCORBIC ACID 500 MG TAB PO SCH (16:57)
[2020-04-08] MEDS: FERROUS GLUCONATE 324 MG TAB PO SCH (16:57)
[2020-04-08] MEDS: OXYCODONE HCL IR 5 MG TAB (IMMEDIATE RELEASE) PO PRN ×2 (17:02→23:23)
--- NOTE | 2020-04-08 18:33 | Operative Report ---
Post Operative Report Pre & Post Diagnosis Operation Date: 04/08/20 10:40 Pre-Op Diagnosis: Right Total Knee Aseptic Loosening of the Femoral Component and Severe Osteolysis and Polyethylene Wear Post-Op Diagnosis: Right Total Knee Aseptic Loosening of the Femoral Component and Severe Osteolysis and Polyethylene Wear I identified the patient and participated in the time-out.: Yes Procedure Operation Date: 04/08/20 10:40 Actual Procedures p Right Total Knee Revision(Right) - Hilario Soliz MD Surgeon Hilario Soliz MD Woodworking Craftsman Janet, PAUL Estimated Blood Loss 100 Findings Consistent with Post-Op Diagnosis Operative findings revealed aseptic loosening of the femoral component. The femoral component was grossly loose with a complete fibrous interface. There was moderate polyethylene wear of the tibial bearing. The tibial component was well fixed but significant ostial lysis around the tibial tray. There is extensive ostial lysis of both the medial and lateral femoral condyles. The patella component was well preserved. The Gram stain of the fluid revealed rare WBCs and no organisms. Fluids 2000 cc. Specimens Right knee joint fluid sent for stat Gram stain aerobic anaerobic culture which revealed rare WBCs and no organisms. Synovium sent for pathology. Drains None. Anesthesia Type Spinal MAC Complications none Disposition Accompanied Patient To Recovery: Yes Disposition: Recovery Room Indications Patient is a 70-year-old gentleman who is now 24 years out from a right cemented Po stabilized total knee arthroplasty done by Dr. Lehman. He had a revision of the polyethylene as well as the patella revision about 14 years ago done by myself. He is done pretty well until the past year he is developed increased pain discomfort and recurrent swelling and ostial lysis of his knee. He had obvious femoral loosening. He underwent a left knee replacement about 4 months ago and was limited by his right knee. He elected proceed with surgical treatment. He did have an infectious work-up which was negative. Description of Procedure Operative implants consist of: 1. Biomet Vanguard 360 right size 65 femoral component with 5 mm distal medial and 5 mm distal lateral augments, 2.5 mm offset stem, and an 80 x 17 femoral stem. 2. Biomet 360 Vanguard size 75 tibial tray with a 2.5 mm offset, small cruciate wing, and a 14 x 80 mm stem. 3. 18 mm Po stabilized polyethylene insert. Patient was taken to the operating room identified and placed on the operating table supine position protectors were properly padded. IV antibiotics arrived by anesthesia team. Spinal anesthetic of the implemented holding area. Nunn catheter was placed in sterile fashion. Right thigh turn was then placed in the right lower extremities and prepped draped in usual sterile fashion. The right leg was elevated exsanguinated use of an Esmarch and turns placed at 300 mmHg. An anterior approach of the right knee was then performed to longitudinal incision using the previous incision. Sharp lysis got through subcutaneous tissue down the extensor mechanism. A medial parapatellar arthrotomy incision was made. Some subperiosteal dissection was carried out medially. I did a complete synovectomy of the suprapatellar pouch, medial lateral gutters and around the patella. The synovium was sent off for pathology. We did do a stat Gram stain of the fluid which revealed rare WBCs and no organisms. There was no real suspicion for infection. The patella was subluxated laterally. The polyethylene was removed after the clip was removed. The femoral component was easily removed by hand as it was grossly loose. We then spent quite a bit of time removing the tibial tray taking great care to preserve as much bone as possible. I do find the interfaces and then used a saw to break the cement mantle and then the stacked osteotome technique to remove the tibial component. Using an osteotome we then removed the range of the cement. Attention drawn toward preparing the tibia. The tibia was reamed sequentially beginning with size 10 and progressing up to a 14. The 14 reamer was left in place and the proximal tibial cut was made to remove about 3 mm off the medial side knowing that this was taken from the very surface. The tibia was then sized to a size 75. We try to maximize coverage. We used a 2.5 mm offset and the tibia was then prepared. Tibial component was assembled and impacted in position. Attention drawn the femur. The distal femur around the sharp drill. We reamed up to a size 17. A 5 degree valgus cutting guide was placed in the distal femoral cut was made to take an additional 5 mm of bone off the medial side was cut just under the lateral surface. We got decent bony surface of fixation but there was quite a bit of fibrous tissue and ostial lysis. The femur was then sized to a size 65. The AP cutting block was pinned parallel to the epicondylar axis and the anterior cut, anterior chamfer, posterior cut, posterior chamfer cuts were made. The femoral component was assembled and implanted. The box cut was then made. The trochlear component was placed. We then trialed the knee and the 18 mm insert fit most appropriately. Attention drawn to placing the permanent components. All trial components were removed. I spent quite a bit of time get rid of all the fibrous interfaces from the ostial lysis. We irrigated the wound extensively. Once the implants were assembled a double batch of [place] G cement was mixed with 2 additional grams of vancomycin. The femoral component was placed first to cementing the metaphysis and the articular surface followed by the tibia, similarly cementing the metaphysis and the articular surface. The 18 mm insert was placed. The knee was held in extension until cement hardened. Final cement check was then performed. I injected locally with 100 cc of combination of 20 cc of Exparel, 30 cc normal saline, 50 cc of quarter percent Marcaine with epinephrine. The turn patient did receive 1 g of tranexamic acid. The tourniquet was then let down for turn time 120 minutes. Hemostasis assured with electrocautery. The wounds once again irrigated. The extensor mechanism closed with combination 1 PDS suture #1 Vicryl suture in [id number] fashion. Extensor mechanism checked found to be intact the subcutaneous tissue then closed with 2 Dexon suture in buried interrupted fashion skin was closed skin rolf. Leg was then cleaned dried a sterile dressing composed Xeroform, 4 x 4's, sterile cast padding Ad bandage were applied. Patient transferred to the recovery room in stable condition. Patient tolerated procedure well no complications. I attest to the content of the Intraoperative Record and any orders documented therein. Any exceptions are noted below.
[2020-04-08] MEDS: HYDROmorphone INJ 0.5 MG/0.5 ML SYR IV PRN (19:34)
[2020-04-08] MEDS: CEFAZOLIN 2000MG 2,000 MG/15 ML SYR IV SCH (19:35)
[2020-04-08] MEDS ORDERED: TRANEXAMIC ACID / 0.7% NACL 1,000 MG/100 ML BAG IV SCH (20:05)
[2020-04-08] MEDS: ASPIRIN 81 MG ECTAB PO SCH (20:58)
[2020-04-08] MEDS: TAPENTADOL HCL ER 50 MG TABCR PO SCH (20:58)
[2020-04-08] MEDS: DOCUSATE SODIUM 100 MG CAP PO SCH (20:58)
[2020-04-08] MEDS: ATORVASTATIN 40 MG TAB PO SCH (20:59)
[2020-04-08] MEDS: SENNA 8.6 MG TAB PO SCH (20:59)
[2020-04-08] MEDS: ACETAMINOPHEN 500 MG TAB PO SCH (21:00)
[2020-04-09] MEDS: CEFAZOLIN 2000MG 2,000 MG/15 ML SYR IV SCH (03:40)
[2020-04-09] MEDS: SODIUM CHLORIDE 0.9% 1000ML 1,000 ML IV SCH (03:46)
[2020-04-09] MEDS: ACETAMINOPHEN 500 MG TAB PO SCH ×3 (06:14→22:14)
[2020-04-09 06:38] LABS: Hematocrit (blood only) 37.3 % (42-52); Mean Corpuscular Hemoglobin 28.3 pg (25-34); Mean Corpuscular Hgb Conc 32.2 g/dL (32-36); Platelet Count 147 K/uL (130-400); RDW Coefficient of Variation 14.5 % (11.5-14.5); RDW Standard Deviation 46.9 fL (36.4-46.3); Red Blood Count 4.24 M/uL (4.7-6.1); White Blood Count 8.74 K/uL (4.8-10.8)
[2020-04-09 07:10] LABS: BUN Creatinine Ratio 13.4 (10-20); Calcium 8.4 mg/dl (8.5-10.1); Creatinine Clr Calc Pharmacy 47.6 ml/min; Est GFR (African American) 53.5; Est GFR (Non-African American) 46.1; Potassium 3.9 mmol/L (3.5-5.1)
--- NOTE | 2020-04-09 08:22 | Anesthesiology Progress Note ---
Date of Service April 09, 2020 Anesthesia Post Procedure Vital Signs Vital Signs: Temp Pulse Pulse Pulse Resp BP BP 04/09/20 07:18 36.7 C 78 17 141/78 H 04/09/20 04:13 36.6 C 65 18 130/80 04/08/20 23:00 36.4 C L 66 18 127/77 04/08/20 17:40 36.4 C L 55 L 16 129/81 04/08/20 16:52 36.4 C L 60 16 139/86 04/08/20 16:47 36.4 C L 52 L 16 139/81 04/08/20 16:13 36.4 C L 54 L 18 122/73 04/08/20 15:43 36.4 C L 58 L 20 115/70 04/08/20 15:15 54 L 13 146/68 H 04/08/20 15:00 58 L 14 116/70 04/08/20 14:45 36.3 C L 54 L 13 102/72 04/08/20 14:40 55 L 14 129/71 04/08/20 14:30 58 L 14 123/68 04/08/20 14:20 56 L 15 104/60 04/08/20 14:10 66 16 105/70 04/08/20 14:03 36.2 C L 68 14 109/60 04/08/20 10:31 63 18 125/80 04/08/20 09:44 36.9 C 70 20 150/85 H Pulse Ox 04/09/20 07:18 100 04/09/20 04:13 99 04/08/20 23:00 96 04/08/20 17:40 95 04/08/20 16:52 99 04/08/20 16:47 99 04/08/20 16:13 100 04/08/20 15:43 98 04/08/20 15:15 98 04/08/20 15:00 95 04/08/20 14:45 96 04/08/20 14:40 97 04/08/20 14:30 96 04/08/20 14:20 95 04/08/20 14:10 94 04/08/20 14:03 97 04/08/20 10:31 97 04/08/20 09:44 96 Pain Intensity Right Knee: Pain Intensity: 0 Notes Mental Status: alert / awake / arousable and participated in evaluation Patient Amnestic to Procedure: Yes Nausea / Vomiting: adequately controlled Pain: adequately controlled Airway Patency, RR, SpO2: stable & adequate BP & HR: stable & adequate Hydration State: stable & adequate Neuraxial Anesthesia: was administered and sensory block resolved Anesthetic Complications: no major complications apparent and Pt Satisfied with anesthetic care
[2020-04-09] MEDS ORDERED: MULTIVITAMIN TAB PO SCH (09:00)
[2020-04-09] MEDS: FERROUS GLUCONATE 324 MG TAB PO SCH ×2 (09:05→18:06)
[2020-04-09] MEDS: lisinopriL 10 MG TAB PO SCH (09:05)
[2020-04-09] MEDS: ASPIRIN 81 MG ECTAB PO SCH ×2 (09:05→20:03)
[2020-04-09] MEDS: ASCORBIC ACID 500 MG TAB PO SCH ×2 (09:05→18:06)
[2020-04-09] MEDS: DOCUSATE SODIUM 100 MG CAP PO SCH ×2 (09:05→20:03)
[2020-04-09] MEDS: OMEGA-3 (PURIFIED FISH OIL) 1 GM CAP PO SCH (09:06)
[2020-04-09] MEDS: MULTIVITAMIN TAB PO SCH (09:06)
[2020-04-09] MEDS: PANTOprazole 40 MG TAB PO SCH (09:06)
[2020-04-09] MEDS: TAPENTADOL HCL ER 50 MG TABCR PO SCH ×2 (09:08→20:07)
[2020-04-09] MEDS: OXYCODONE HCL IR 5 MG TAB (IMMEDIATE RELEASE) PO PRN (11:16)
--- NOTE | 2020-04-09 13:32 | Progress Notes ---
DATE: 04/09/2020 SUBJECTIVE: A 70-year-old gentleman postop day 1 from a right revision knee arthroplasty for aseptic loosening. He is doing pretty well. Pretty uncomfortable at therapy, but otherwise, pain is controlled. No chest pain or shortness of breath. Not feeling dizzy or lightheaded. OBJECTIVE: VITAL SIGNS: Temperature 36.7. Vital signs stable. GENERAL: Shows a pleasant elderly male. He is sitting up in bed, looks pretty comfortable. EXTREMITIES: Examination of the right leg reveals the leg to be well aligned. He does have a little bit of blood on the anterior aspect of his dressing. He can dorsiflex and plantarflex his foot appropriately. quite do a straight leg raise. He is neurologically intact. LABORATORY DATA: Hemoglobin 12.0. Hematocrit 37.3. Electrolytes are stable. Creatinine is actually improved some at 1.51. ASSESSMENT: A 70-year-old gentleman postoperative day 1 from right total knee replacement revision for aseptic loosening. He is doing reasonably well. Pain has been controlled. His creatinine is stable. PLAN: 1. DVT prophylaxis including thigh-high TEDs, SCDs, and aspirin twice a day. 2. PT/OT. Weight bear as tolerated. Right total knee protocol. 3. Pain control, doing okay with current pain regimen. 4. Disposition: He is planning to be discharged to home. He is going to do outpatient therapy.
[2020-04-09] MEDS: SENNA 8.6 MG TAB PO SCH (20:03)
[2020-04-09] MEDS: ATORVASTATIN 40 MG TAB PO SCH (20:04)
[2020-04-10] MEDS: OXYCODONE HCL IR 5 MG TAB (IMMEDIATE RELEASE) PO PRN ×2 (00:24→08:52)
[2020-04-10] MEDS: HYDROmorphone INJ 0.5 MG/0.5 ML SYR IV PRN (04:34)
[2020-04-10] MEDS: ACETAMINOPHEN 500 MG TAB PO SCH ×2 (06:19→12:43)
--- NOTE | 2020-04-10 07:09 | Orthopedic Progress Note ---
Date of Service April 10, 2020 Assessment & Plan (1) Status post revision of total replacement of right knee: He is doing pretty well today. His pain is controlled. We will continue PT OT today. He is weightbearing as tolerated. We will plan on likely discharge home today he will do outpatient physical therapy. Continue TYRONE stockings, SCDs, and aspirin for DVT prophylaxis. He should follow-up with proximately 2 weeks postoperatively. 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 He is doing pretty well this morning. He is having some knee pain but it is reasonably controlled with current pain regimen. Denies any chest pain or shortness of breath. No other complaints. Physical Exam Physical Exam: He is alert and oriented. No distress. His postoperative dressing on the right leg has been changed. Current dressing is clean, dry, and intact. He is able dorsiflex plantarflex appropriately. He is neurovascular intact. He is not quite able do a straight leg raise at this time. Results & Data ([facility]) Vital Signs (Past 12 Hours) Vital Signs Temp Pulse Resp BP Pulse Ox 04/10/20 00:01 37.0 C 79 16 121/76 93 PG Care Time/CCT Total # of Minutes Spent Total Time Spent with Patient: Total time spent is greater than 50% in coordination of care (as documented) at patient's floor/unit and/or counseling patient: Coding Level of Care Code None Diagnoses Status post revision of total replacement of right knee Z96.651
[2020-04-10] MEDS: ASPIRIN 81 MG ECTAB PO SCH (08:52)
[2020-04-10] MEDS: DOCUSATE SODIUM 100 MG CAP PO SCH (08:52)
[2020-04-10] MEDS: TAPENTADOL HCL ER 50 MG TABCR PO SCH (08:52)
[2020-04-10] MEDS: lisinopriL 10 MG TAB PO SCH (08:53)
[2020-04-10] MEDS: MULTIVITAMIN TAB PO SCH (08:53)
[2020-04-10] MEDS: ASCORBIC ACID 500 MG TAB PO SCH (08:53)
[2020-04-10] MEDS: PANTOprazole 40 MG TAB PO SCH (08:53)
[2020-04-10] MEDS: OMEGA-3 (PURIFIED FISH OIL) 1 GM CAP PO SCH (08:53)
[2020-04-10] MEDS: FERROUS GLUCONATE 324 MG TAB PO SCH (08:53)
--- NOTE | 2020-04-15 07:45 | Discharge Summary ---
Date of Service April 15, 2020 Admission HPI Per Admitting Provider Documented in the H&P Admission Exam (Per Admitting) Constitutional Documented in the H&P Discharge Data Consultations 04/08/20 15:43 Consult Case Management - Discharge Planning Routine Procedures Performed Operation Date: 04/08/20 10:40 Actual Procedures p Right Total Knee Revision(Right) - Hilario Soliz MD Hospital Course (1) Status post revision of total replacement of right knee: 70-year-old male admitted on 04/08/2020 underwent total knee revision for aseptic loosening. He tolerated the procedure well and there were no complications. He was transferred to the PACU postoperatively and later to the orthopedic for further care. He was given Ancef for antibiotic prophylaxis. He was given TYRONE stockings, SCDs, and aspirin for DVT prophylaxis. His hemoglobin, hematocrit, and vital signs monitored during his hospital stay remained stable. There were no complications. He not acquiring blood transfusions. By postoperative day 2 he was tolerating a regular diet, pain was controlled with oral pain medicine, and he is participating in physical therapy. Postop day 2 he was discharged home. He is given printed discharge instructions as well as new prescriptions for extra strength Tylenol, aspirin, and oxycodone. Continue physical therapy. He is weightbearing as tolerated. TYRONE stockings. Follow-up proximately 2 weeks postop or sooner if there are any problems or concerns. Coding Level of Care Code None Diagnoses Status post revision of total replacement of right knee Z96.651
== END 2020-04-10 13:41 | disposition home or self-care (01) ==
LOC: ASU 09:12 → 3E 09:12

== ENCOUNTER 2023-03-15 18:41 | Observation (INO) ==
[2023-03-15 19:24] LABS: Basophils # (auto) 0.01 K/uL (0-0.2); Basophils % (auto) 0.2 %; Hematocrit (blood only) 42.5 % (42.0-52.0); Hemoglobin 14.6 g/dl (14.0-18.0); Immature Granulocytes # (auto) 0.01 K/uL (0.01-0.20); Immature Granulocytes % (auto) 0.2 %; Lymphocytes # (auto) 0.53 K/uL (1.2-3.4); Lymphocytes % (auto) 12.7 %; Mean Corpuscular Hemoglobin 28.7 pg (25.0-34.0); Mean Corpuscular Hgb Conc 34.4 g/dL (32.0-36.0); Mean Corpuscular Volume 83.5 fL (80.0-100.0); Mean Platelet Volume 10.2 fL (9.4-12.4); Monocytes # (auto) 0.31 K/uL (0.11-0.59); Monocytes % (auto) 7.4 %; Neutrophils # (auto) 3.31 K/uL (1.40-6.50); Neutrophils % (auto) 79.5 %; Platelet Count 114 K/uL (130-400); RDW Coefficient of Variation 13.2 % (11.5-14.5); RDW Standard Deviation 40.3 fL (36.4-46.3); Red Blood Count 5.09 M/uL (4.70-6.10); White Blood Count 4.17 K/ul (4.8-10.8)
[2023-03-15 19:34] LABS: Alanine Aminotransferase 212 U/L (7-52); Albumin Globulin Ratio 1.2 (0.9-2); Albumin Level 4.3 gm/dl (3.4-5.0); Alkaline Phosphatase 149 U/L (34-104); Anion Gap 10 (3-11); Aspartate Aminotransferase 234 U/L (13-39); BUN Creatinine Ratio 12.4 (10-20); Bilirubin,Total 0.8 mg/dl (0.2-1.0); Blood Urea Nitrogen 29 mg/dl (6-23); Calcium 9.2 mg/dl (8.6-10.3); Carbon Dioxide 22 mmol/L (21-32); Chloride 99 mmol/L (98-107); Est GFR (Non-African American) 26.7 ml/min; Globulin 3.5 gm/dl (2.5-4.0); Glucose 139 mg/dl (70-99(Fasting)); Potassium 4.2 mmol/L (3.5-5.1); Sodium 131 mmol/L (136-145); Total Protein 7.8 gm/dl (6.0-8.3)
[2023-03-15] MEDS ORDERED: SODIUM CHLORIDE 0.9% 1000ML 1,000 ML IV ONE (19:37)
--- NOTE | 2023-03-15 19:49 | XRay Report ---
XR chest 1V not portable HISTORY: 73 years-old Male cough acute cough with shortness of breath COMPARISON: 12/08/2018 TECHNIQUE: AP view the chest FINDINGS: Cardiac silhouette is enlarged. No pneumothorax, pleural effusion, airspace consolidation or pulmonar y edema. Degenerative changes of the spine and left shoulder. Right shoulder arthroplasty. IMPRESSION: Cardiomegaly without acute process. ACT 112: Negative or not required by law. The above report was generated using voice recognition software. It may contain grammatical, syntax o r spelling errors. Electronically signed by: Jeremy Contreras M.D. 03/15/2023 7:48 PM
[2023-03-15 19:57] LABS: Influenza A virus by PCR Negative (Neg); Influenza B virus by PCR Negative (Neg); RSV by PCR Negative (Neg); SARS CoV2 RNA(COVID-19) Ceph NEGATIVE (Negative)
[2023-03-15 20:14] LABS: Lipase 62 U/L (11-82)
[2023-03-15] MEDS ORDERED: SODIUM CHLORIDE 0.9% 1000ML 500 ML IV ONE (20:31)
[2023-03-15] MEDS ORDERED: IBUPROFEN 200 MG TAB PO STA (20:31)
[2023-03-15] MEDS ORDERED: DOXYCYCLINE HYCLATE 100 MG in DEXTROSE 5% 100 ML IV STA (20:42)
[2023-03-15 21:15] LABS: Lyme Ab IgG w/WB Rflx Negative (Negative); Lyme Ab IgM w/WB Rflx Negative (Negative)
--- NOTE | 2023-03-15 21:59 | Emergency Department Note ---
Impression & Plan Febrile illness, acute, Acute encephalopathy, Leukopenia, Elevated LFTs, Thrombocytopenia, JHOAN (acute kidney injury) ED Provider Note INFORMANT: Patient and ED PROVIDER(S): Tomi Santamaria MD CHIEF COMPLAINT: Illness PLAN: Disposition: Admitted Condition: Good Outpatient prescription management: none Referral: None MEDICAL DECISION MAKING: Patient presented because of an illness. He was febrile. Patient was hydrated. Protocol blood work was initiated. Patient's lactate was negative. Patient CBC revealed a mild leukopenia and thrombocytopenia. Chemistry panel revealed some mild JHOAN. Elevated LFTs. The patient had a positive procalcitonin. Urinalysis pending. Chest x-ray was performed and was unremarkable. COVID testing was negative. Flu and RSV testing negative. Patient had negative anaplasmosis smear and Lyme testing was negative. Anaplasmosis DNA pending. Patient does know he spends a lot of time outdoors. His blood work is concerning for tickborne illness, especially anaplasmosis. He has some mild SIRS but not sepsis or septic shock. Patient was given a low-dose of ibuprofen due to his fever. He was hydrated. I did do empiric IV doxycycline. I discussed further management in the hospital with the patient's and patient. They were in agreement. Consultation was made with Dr. Kuo of the [facility] service. Patient was evaluated in the ER for further management. After review of the information above and other included data, I feel the patient requires admission. Triage Nursing notes reviewed and agree them. Vital Signs: reviewed and remarkable for fever and tachycardia Prior /Outside records reviewed: none Differential diagnosis: Viral syndrome, otitis, pharyngitis, pneumonia, influenza, meningitis, urinary tract infection, sepsis, bacteremia, tickborne illness, as well as other pathologies. Diagnostics, as interpreted by me: ECG: Twelve-lead ECG reveals sinus tachycardia at 128 bpm. Poor R wave progression. No ST elevation or PVCs. Cardiac Monitoring: Cardiac monitoring ordered by me: The patient was placed on continuous cardiac monitoring and observed. It revealed a sinus tachycardia at 104 beats per minute without ectopy or evidence of dysrhythmia. Medical decision rules: none Imaging studies: Chest x-ray. Findings: A chest x-ray was performed and revealed no pneumothorax, effusion, infiltrate, pulmonary edema, free air under the diaphragm, or wide mediastinum. Impression: No acute disease. HPI: The patient is a 73year old male who presents to the Emergency Room with complaints of illness. This started 2 days ago and is worsening per the . The patient also notes the following associated symptoms, mild disorientation per the , feeling generally weak, fevers, chills. The patient has taken Tylenol this afternoon for relieving factors. Current pain is rated as 0/10. No known sick contacts. Patient states his cough is not significant and nonproductive. Patient does note spending a lot of time outdoors but denies any bug bites or tick bites. Patient did not have any headache during this illness. Pt denies LOC, headache, diaphoresis, visual changes, neck pain, chest pain, breathing difficulties, nausea, vomiting, abdominal pain, back pain, diarrhea melena, hematochezia, urinary symptoms, numbness, lymphadenopathy, rash, or other complaints. PAST MEDICAL HISTORY: See Below, CKD, hypertension PAST SURGICAL HISTORY: See Below, SOCIAL HISTORY: See Below, HOME MEDICATIONS: See Below ALLERGIES: See Below VITALS: See Below PHYSICAL EXAMINATION: GENERAL: Awake, alert, tired-appearing, in no distress HENT: Normocephalic, atraumatic. Oropharynx unremarkable. EYES: Normal conjunctiva. Sclera non-icteric. NECK: Inspection normal. Non-tender. Supple. No nuchal rigidity. FROM. No masses. RESPIRATORY: Clear to auscultation. No wheezes. No rales. Normal respiratory effort. CARDIAC: Borderline tachycardic rate. Normal rhythm. No murmurs. No rubs. Extremities warm and well perfused. Pulses equal. No JVD. GI: Soft, non-distended. No tenderness to palpation. No rebound or guarding. No masses. RECTAL: Deferred. MUSCULOSKELETAL: Atraumatic. Chest examination reveals no tenderness. The back is symmetrical on inspection without obvious abnormality. There is no CVA tenderness to palpation. No joint edema. LOWER EXTREMITIES: Calves are equal size bilaterally and non-tender. No edema. No discoloration. NEURO: Normal sensorium. No sensory or motor deficits noted. SKIN: No rash or jaundice noted. 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, right Rotator cuff syndrome of left shoulder Surgical History History of back surgery History of carpal tunnel release of both wrists History of colonoscopy History of left knee replacement History of revision of total replacement of right knee joint (~04/08/20) History of total right knee replacement History of total shoulder replacement Hx of foot surgery Hx of prostate biopsy Family History Mother Myocardial infarction Coronary heart disease Father Prostate cancer Myocardial infarction Coronary heart disease Brother Prostate cancer Myocardial infarction Family history of diabetes mellitus Coronary heart disease Denies family history of Ovarian cancer Breast cancer Colorectal cancer Social History (Updated 09/29/22 @ 10:32 by TAMERA Allen) Smoking Status: Never smoker Tobacco Type: Smokeless Tobacco (Dip or Chew) Second Hand Exposure: No; Do You Dip or Chew Tobacco: Yes; Hx Alcohol Use: Yes Alcohol type: beer and wine Alcohol Intake Frequency: 2-3 x/Week Hx Substance Use: No Preferred Language: Chinese Communication Ability: Effective Visual Impairment: No Limitations Hearing Ability: Normal Incident Response Coordinator Required: No Beliefs That Will Affect Care: None marital status: Current Living Situation: Spouse and Family Current Living Situation Comment: Lives with and stepson current occupational status: retired Feels Safe at Home: Yes Childhood Exposure to Second-Hand Smoke: Yes Diet: regular Diet Comment: regular Dental Care, Regularly: Yes Physical Activity Frequency: Does not Exercise Seatbelt Use: sometimes Sunscreen Use: No Assistive Devices: Denture - Upper and Glasses Allergies Allergies Allergy/AdvReac Type Severity Reaction Status Date / Time bee venom protein (honey bee) Allergy Intermediate ITCHY Verified 03/15/23 21:26 venom-wasp Allergy Intermediate ITCHY Verified 03/15/23 21:26 No Known Drug Allergies Allergy nkda Verified 03/15/23 21:26 Home Meds Home Medications Medication Instructions Recorded Confirmed multivitamin 1 tab PO QAM 12/01/18 03/15/23 omega-3 fatty acids 1,000 mg 1,000 mg PO QAM 08/26/19 03/15/23 capsule (Fish Oil Concentrate) acetaminophen 500 mg tablet 1,000 mg PO Q6H PRN Pain 03/15/23 03/15/23 (Tylenol Extra Strength) aspirin 81 mg tablet,delayed 81 mg PO DAILY 03/15/23 03/15/23 release omeprazole 20 mg capsule,delayed 20 mg PO DAILY 03/15/23 03/15/23 release zinc gluconate 50 mg tablet 50 mg PO DAILY 03/15/23 03/15/23 Previous Rx's Medication Instructions Recorded atorvastatin 40 mg tablet 40 mg PO HS #90 tabs 01/22/23 lisinopril 10 mg tablet 10 mg PO QAM #90 tabs 01/22/23 Results & Data (ED) Vital Signs Vital Signs - 24 hr 03/15/23 18:50 03/15/23 20:00 03/15/23 20:30 Temperature 38.8 C H Temperature Source Oral Pulse Rate 125 H 114 H 105 H Pulse Rate from SpO2 Sensor 114 H 104 H Respiratory Rate 20 22 22 Respiratory Effort / Characteristics Non-Labored Spontaneous Respiratory Depth Normal Blood Pressure 144/92 H 130/88 186/123 H Blood Pressure Mean 109 102 144 Pulse Oximetry 94 93 97 Oxygen Delivery Method Room Air Room Air Room Air Sepsis Recent Fever Within 48 Hours Yes Sepsis New/Unexplained Change in Mental Status No Sepsis Action Taken by Nursing No Action Required 03/15/23 20:39 Temperature Temperature Source Pulse Rate 104 H Pulse Rate from SpO2 Sensor 105 H Respiratory Rate 20 Respiratory Effort / Characteristics Respiratory Depth Blood Pressure 123/82 Blood Pressure Mean 95 Pulse Oximetry 97 Oxygen Delivery Method Room Air Sepsis Recent Fever Within 48 Hours Sepsis New/Unexplained Change in Mental Status Sepsis Action Taken by Nursing Laboratory Data 03/15/23 18:58 03/15/23 18:58 Lab Results 03/15/23 03/15/23 03/15/23 Range/Units 18:58 18:58 18:58 WBC 4.17 L (4.8-10.8) K/ul RBC 5.09 (4.70-6.10) M/uL Hgb 14.6 (14.0-18.0) g/dl Hct 42.5 (42.0-52.0) % MCV 83.5 (80.0-100.0) fL MCH 28.7 (25.0-34.0) pg MCHC 34.4 (32.0-36.0) g/dL RDW Std Deviation 40.3 (36.4-46.3) fL RDW Coeff of Esau 13.2 (11.5-14.5) % Plt Count 114 L (130-400) K/uL MPV 10.2 (9.4-12.4) fL Immature Gran % (Auto) 0.2 % Neut % (Auto) 79.5 % Lymph % (Auto) 12.7 % Wells % (Auto) 7.4 % Eos % (Auto) 0.0 % Baso % (Auto) 0.2 % Neut # (Auto) 3.31 (1.40-6.50) K/uL Lymph # (Auto) 0.53 L (1.2-3.4) K/uL Wells # (Auto) 0.31 (0.11-0.59) K/uL Eos # (Auto) 0.00 (0-0.50) K/uL Baso # (Auto) 0.01 (0-0.2) K/uL Immature Gran # (Auto) 0.01 (0.01-0.20) K/uL Sodium 131 L (136-145) mmol/L Potassium 4.2 (3.5-5.1) mmol/L Chloride 99 (98-107) mmol/L Carbon Dioxide 22 (21-32) mmol/L Anion Gap 10 (3-11) BUN 29 H (6-23) mg/dl Creatinine 2.33 H (0.6-1.4) mg/dl Est Cr Clr Drug Dosing Not Reportable Est GFR ( Amer) 31.0 ml/min Est GFR (Non-Af Amer) 26.7 ml/min BUN/Creatinine Ratio 12.4 (10-20) Glucose 139 H (70-99(Fasting)) mg/dl Lactate (0.4-2.0) mmol/L Calcium 9.2 (8.6-10.3) mg/dl Total Bilirubin 0.8 (0.2-1.0) mg/dl AST 234 H (13-39) U/L ALT 212 H (7-52) U/L Alkaline Phosphatase 149 H (34-104) U/L Total Protein 7.8 (6.0-8.3) gm/dl Albumin 4.3 (3.4-5.0) gm/dl Globulin 3.5 (2.5-4.0) gm/dl Albumin/Globulin Ratio 1.2 (0.9-2) Lipase 62 (11-82) U/L Procalcitonin (0-0.5) ng/ml Anaplasma Smear See Comment Lyme Disease IgG Ab (Negative) Lyme Disease IgM Ab (Negative) SARS-CoV-2 (PCR) (Negative) Influenza Type A (PCR) (Neg) Influenza Type B (PCR) (Neg) RSV (RT-PCR) (Neg) 03/15/23 03/15/23 03/15/23 Range/Units 18:59 19:57 20:09 WBC (4.8-10.8) K/ul RBC (4.70-6.10) M/uL Hgb (14.0-18.0) g/dl Hct (42.0-52.0) % MCV (80.0-100.0) fL MCH (25.0-34.0) pg MCHC (32.0-36.0) g/dL RDW Std Deviation (36.4-46.3) fL RDW Coeff of Esau (11.5-14.5) % Plt Count (130-400) K/uL MPV (9.4-12.4) fL Immature Gran % (Auto) % Neut % (Auto) % Lymph % (Auto) % Wells % (Auto) % Eos % (Auto) % Baso % (Auto) % Neut # (Auto) (1.40-6.50) K/uL Lymph # (Auto) (1.2-3.4) K/uL Wells # (Auto) (0.11-0.59) K/uL Eos # (Auto) (0-0.50) K/uL Baso # (Auto) (0-0.2) K/uL Immature Gran # (Auto) (0.01-0.20) K/uL Sodium (136-145) mmol/L Potassium (3.5-5.1) mmol/L Chloride (98-107) mmol/L Carbon Dioxide (21-32) mmol/L Anion Gap (3-11) BUN (6-23) mg/dl Creatinine (0.6-1.4) mg/dl Est Cr Clr Drug Dosing Est GFR ( Amer) ml/min Est GFR (Non-Af Amer) ml/min BUN/Creatinine Ratio (10-20) Glucose (70-99(Fasting)) mg/dl Lactate 1.3 (0.4-2.0) mmol/L Calcium (8.6-10.3) mg/dl Total Bilirubin (0.2-1.0) mg/dl AST (13-39) U/L ALT (7-52) U/L Alkaline Phosphatase (34-104) U/L Total Protein (6.0-8.3) gm/dl Albumin (3.4-5.0) gm/dl Globulin (2.5-4.0) gm/dl Albumin/Globulin Ratio (0.9-2) Lipase (11-82) U/L Procalcitonin 1.57 H (0-0.5) ng/ml Anaplasma Smear Lyme Disease IgG Ab (Negative) Lyme Disease IgM Ab (Negative) SARS-CoV-2 (PCR) NEGATIVE (Negative) Influenza Type A (PCR) Negative (Neg) Influenza Type B (PCR) Negative (Neg) RSV (RT-PCR) Negative (Neg) 03/15/23 Range/Units 20:40 WBC (4.8-10.8) K/ul RBC (4.70-6.10) M/uL Hgb (14.0-18.0) g/dl Hct (42.0-52.0) % MCV (80.0-100.0) fL MCH (25.0-34.0) pg MCHC (32.0-36.0) g/dL RDW Std Deviation (36.4-46.3) fL RDW Coeff of Esau (11.5-14.5) % Plt Count (130-400) K/uL MPV (9.4-12.4) fL Immature Gran % (Auto) % Neut % (Auto) % Lymph % (Auto) % Wells % (Auto) % Eos % (Auto) % Baso % (Auto) % Neut # (Auto) (1.40-6.50) K/uL Lymph # (Auto) (1.2-3.4) K/uL Wells # (Auto) (0.11-0.59) K/uL Eos # (Auto) (0-0.50) K/uL Baso # (Auto) (0-0.2) K/uL Immature Gran # (Auto) (0.01-0.20) K/uL Sodium (136-145) mmol/L Potassium (3.5-5.1) mmol/L Chloride (98-107) mmol/L Carbon Dioxide (21-32) mmol/L Anion Gap (3-11) BUN (6-23) mg/dl Creatinine (0.6-1.4) mg/dl Est Cr Clr Drug Dosing Est GFR ( Amer) ml/min Est GFR (Non-Af Amer) ml/min BUN/Creatinine Ratio (10-20) Glucose (70-99(Fasting)) mg/dl Lactate (0.4-2.0) mmol/L Calcium (8.6-10.3) mg/dl Total Bilirubin (0.2-1.0) mg/dl AST (13-39) U/L ALT (7-52) U/L Alkaline Phosphatase (34-104) U/L Total Protein (6.0-8.3) gm/dl Albumin (3.4-5.0) gm/dl Globulin (2.5-4.0) gm/dl Albumin/Globulin Ratio (0.9-2) Lipase (11-82) U/L Procalcitonin (0-0.5) ng/ml Anaplasma Smear Lyme Disease IgG Ab Negative (Negative) Lyme Disease IgM Ab Negative (Negative) SARS-CoV-2 (PCR) (Negative) Influenza Type A (PCR) (Neg) Influenza Type B (PCR) (Neg) RSV (RT-PCR) (Neg) Administered Medications Doxycycline Hyclate 100 mg/ (Dextrose) 110 mls @ 50 mls/hr IV NOW STA Stop: 03/15/23 22:53 Last Admin: 03/15/23 21:17 Dose: 50 mls/hr Documented By: HUDSON Discontinued Medications Sodium Chloride (Nss 1000ml) 1,000 mls @ 999 mls/hr IV .Q1H1M ONE Stop: 03/15/23 20:37 Last Infusion: 03/15/23 21:12 Dose: 0 mls/hr Documented By: Admin: 03/15/23 20:10 Dose: 999 mls/hr Documented By: HUDSON Sodium Chloride (Nss 1000ml) 500 mls @ 999 mls/hr IV .Q31M ONE Stop: 03/15/23 21:01 Last Admin: 03/15/23 21:12 Dose: 999 mls/hr Documented By: HUDSON Ibuprofen (Ibuprofen 200 Mg Tab) 400 mg PO NOW STA Stop: 03/15/23 20:32 Last Admin: 03/15/23 20:42 Dose: 400 mg Documented By: HUDSON Imaging Data Radiologist's Impression: Chest X-Ray 03/15/23 18:54 XR chest 1V not portable HISTORY: 73 years-old Male cough acute cough with shortness of breath COMPARISON: 12/08/2018 TECHNIQUE: AP view the chest FINDINGS: Cardiac silhouette is enlarged. No pneumothorax, pleural effusion, airspace consolidation or pulmonary edema. Degenerative changes of the spine and left shoulder. Right shoulder arthroplasty. IMPRESSION: Cardiomegaly without acute process. ACT 112: Negative or not required by law. The above report was generated using voice recognition software. It may contain grammatical, syntax or spelling errors. Electronically signed by: Jeremy Conterras M.D. 03/15/2023 7:48 PM Discharge Plan Visit Data Chief Complaint: Illness Stated Complaint: DISORIENTED,FEVER,UNSTEADY ON FEET ED Provider: Tomi Santamaria Discharge Problem: Febrile illness, acute, Acute encephalopathy, Leukopenia, Elevated LFTs, Thrombocytopenia, JHOAN (acute kidney injury) Forms Stand Alone Forms: [facility] Prescriptions Prescriptions: No Action atorvastatin 40 mg tablet 40 mg PO HS Qty: 90 1RF lisinopril 10 mg tablet 10 mg PO QAM Qty: 90 1RF omega-3 fatty acids [Fish Oil Concentrate] 1,000 mg capsule 1,000 mg PO QAM multivitamin Tablet 1 tab PO QAM aspirin [Aspir-Low] 81 mg Tablet,Delayed Release (Dr/Ec) 81 mg PO DAILY acetaminophen [Tylenol Extra Strength] 500 mg Tablet 1,000 mg PO Q6H PRN (Reason: Pain) zinc gluconate 50 mg Tablet 50 mg PO DAILY omeprazole 20 mg capsule,delayed release(DR/EC) 20 mg PO DAILY Referrals Referrals: Erick Jane DO [Primary Care Provider] -
--- NOTE | 2023-03-15 22:10 | History & Physical Report ---
Resident Physician Supervision Note: I discussed the case with the resident and agree with the findings and plan as documented in the note. Documented By: Christiano Hurtado MD Date of Service March 15, 2023 Assessment & Plan (1) Febrile illness, acute: Plan: Acute Febrile Illness - leukopenia with WBC= 4.17, thrombocytopenia with platelets= 114 - blood cultures pending - elevated LFTs - pro-wilmer= 1.5 - lactate negative - Lyme negative, Anaplasma pending - Given fever, elevated LFTs, and thrombocytopenia concern for tick borne illness, specially anaplasmosis - Continue IV doxycycline Altered Mental Status - AAOx3 with normal neuro exam, no meningeal signs/headache - Could be encephalitis secondary to tick borne illness, could also be a component of delirium - q4 neuro checks - Will check Head CT Elevated LFTs -AST= 234, ALT= 212, alk phos= 149 - Likely secondary to tick borne illness - Repeat qAM Hypotensive - Likely secondary to dehydration, negative lactate - Urine/Blood cultures pending - 2.5 liter fluid bolus in the ED, will give an additional liter and start on maintenance IVF @ 100ml/hr JHOAN - creatine= 2.3 on admission, baseline 1.75 - likely pre-renal in the dehydration - IVF Hyponatremia -likely secondary to dehydration- hypovolemic - will check urine lytes - IVFs; NSS @100ml/hr - Repeat CMP qAM HTN - hold lisinopril given JHOAN and hypotension HLD - hold statin given JHOAN GERD - continue PPI Diet: regular DVT Prophylaxis: Heparin Dispo: med surg with tele (2) Acute encephalopathy: (3) Leukopenia: (4) Elevated LFTs: (5) Thrombocytopenia: (6) JHOAN (acute kidney injury): (7) High cholesterol: (8) Hypertension: (9) GERD (gastroesophageal reflux disease): History of Present Illness Primary Care Provider: Erick Jane DO 73 year old male with a past medical history of stage 3 CKD, HLD, HTN, BPH. Has been sick since Wednesday evening. Subjective fever, chills,, cough. Yesterday was tired and slept most of the day. noticed that he was a little disoriented today and that he had some weakness. Denies headache, neck pain/stiffness. No known sick contacts. Febrile upon presentation in the ED. Does spend a lot of time outside, but has not noticed any recent tick bites or rashes. ED work up is significant for negative lactate, CBC with mild leukopenia, thrombocytopenia, mild JHOAN, elevated LFTs. Positive procal. CXR unremarkable. COVID, flu, RSV testing was negative.Negative anaplasmosis smear and Lyme testing was negative. Anaplasmosis DNA pending. Was given a low dose of ibuprofen for fever. IV doxycycline started . Was hypertensive upon admission, became hypotensive with blood pressures 90s/60s, given 1.5L fluid bolus. Allergies Allergy/AdvReac Type Severity Reaction Status Date / Time bee venom protein (honey bee) Allergy Intermediate ITCHY Verified 03/15/23 21:26 venom-wasp Allergy Intermediate ITCHY Verified 03/15/23 21:26 No Known Drug Allergies Allergy nkda Verified 03/15/23 21:26 Home Medications Medication Instructions Recorded Confirmed Type multivitamin 1 tab PO QAM 12/01/18 03/15/23 History omega-3 fatty acids 1,000 mg 1,000 mg PO QAM 08/26/19 03/15/23 History capsule (Fish Oil Concentrate) atorvastatin 40 mg tablet 40 mg PO HS #90 tabs 01/22/23 03/15/23 Rx lisinopril 10 mg tablet 10 mg PO QAM #90 tabs 01/22/23 03/15/23 Rx acetaminophen 500 mg tablet 1,000 mg PO Q6H PRN Pain 03/15/23 03/15/23 History (Tylenol Extra Strength) aspirin 81 mg tablet,delayed 81 mg PO DAILY 03/15/23 03/15/23 History release omeprazole 20 mg capsule,delayed 20 mg PO DAILY 03/15/23 03/15/23 History release zinc gluconate 50 mg tablet 50 mg PO DAILY 03/15/23 03/15/23 History 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, right Rotator cuff syndrome of left shoulder Surgical History History of back surgery History of carpal tunnel release of both wrists History of colonoscopy History of left knee replacement History of revision of total replacement of right knee joint (~04/08/20) History of total right knee replacement History of total shoulder replacement Hx of foot surgery Hx of prostate biopsy Family History Mother Myocardial infarction Coronary heart disease Father Prostate cancer Myocardial infarction Coronary heart disease Brother Prostate cancer Myocardial infarction Family history of diabetes mellitus Coronary heart disease Denies family history of Ovarian cancer Breast cancer Colorectal cancer Social History (Updated 09/29/22 @ 10:32 by TAMERA Allen) Smoking Status: Never smoker Tobacco Type: Smokeless Tobacco (Dip or Chew) Second Hand Exposure: No; Do You Dip or Chew Tobacco: Yes; Hx Alcohol Use: Yes Alcohol type: beer and wine Alcohol Intake Frequency: 2-3 x/Week Hx Substance Use: No Preferred Language: Finnish Communication Ability: Effective Visual Impairment: No Limitations Hearing Ability: Normal Second Chef Required: No Beliefs That Will Affect Care: None marital status: Current Living Situation: Spouse and Family Current Living Situation Comment: Lives with and stepson current occupational status: retired Feels Safe at Home: Yes Childhood Exposure to Second-Hand Smoke: Yes Diet: regular Diet Comment: regular Dental Care, Regularly: Yes Physical Activity Frequency: Does not Exercise Seatbelt Use: sometimes Sunscreen Use: No Assistive Devices: Denture - Upper and Glasses Review of Systems Review of Systems: As per above Physical Exam Constitutional: well developed and well nourished; no acute distress Eyes: PERRL Neck: negative Brudzinski's sign and negative Kernig's sign Respiratory: normal respiratory effort Auscultation: lungs clear to auscultation bilaterally Cardiovascular: Rate/Rhythm: regular rate and regular rhythm Heart Sounds: normal S1 and normal S2 Gastrointestinal (Abdomen): normal bowel sounds, soft, nontender, no hepatosplenomegaly Musculoskeletal: no cyanosis or clubbing, extremities motor strength 5/5 Skin: no rashes, warm and dry Neurologic: CN's II-XI intact bilaterally, moves all extremities and awake; no meningeal signs Speech / Cognition: normal speech Results & Data Results & Data Vital Signs (Past 12 Hours) Vital Signs Temp Pulse Resp BP Pulse Ox O2 Del Method 03/15/23 20:39 104 H 20 123/82 97 Room Air 03/15/23 20:30 105 H 22 186/123 H 97 Room Air 03/15/23 20:00 114 H 22 130/88 93 Room Air 03/15/23 18:50 38.8 C H 125 H 20 144/92 H 94 Room Air Resident Activity Tracking Resident Involvement: Resident Care Provided Care Provided: Adult Hospital Medicine (8) Hypertension Hypertension type: essential hypertension Qualified Code(s): I10 - Essential (primary) hypertension (9) GERD (gastroesophageal reflux disease) Esophagitis presence: without esophagitis Qualified Code(s): K21.9 - Gastro- esophageal reflux disease without esophagitis
[2023-03-15] MEDS: SODIUM CHLORIDE 0.9% 1000ML 1,000 ML IV SCH (23:15)
--- NOTE | 2023-03-16 01:26 | CT Scan Report ---
Exam(s): CT HEAD Without Contrast EXAM: CT Head Without Intravenous Contrast CLINICAL HISTORY: Reason for exam: Altered Mental Status. TECHNIQUE: Axial computed tomography images of the head/brain without intravenous contrast. CTDI is 36.97 mGy and DLP is 625.8 mGy-cm. Automated exposure control was utilized for the study. A dose lowering technique was utilized adhering to the principles of ALARA. COMPARISON: None. FINDINGS: Brain: Mild generalized brain atrophy. Slight decreased attenuation within the deep white matter compatible with mild microangiopathic white matter disease. No hemorrhage. Ventricles: Unremarkable. No ventriculomegaly. Bones/joints: Unremarkable. No acute fracture. Soft tissues: Unremarkable. Sinuses: Unremarkable as visualized. No acute sinusitis. Mastoid air cells: Unremarkable as visualized. No mastoid effusion. IMPRESSION: Chronic changes as described. No acute intracranial hemorrhage or space- occupying lesion. Electronically signed by: Arlyn Puentes MD 03/16/23 01:25 AM
[2023-03-16] MEDS ORDERED: POLYETHYLENE (MIRALAX) 17 GM PACK PO PRN (01:30)
[2023-03-16 06:34] LABS: Appearance Urine Cloudy (Clear); Bilirubin Urine Negative (Negative); Blood Urine Trace (Negative); Color Urine Yellow; Glucose Urine UA Negative (Negative); Ketones Urine Negative (Negative); Leukocyte Esterase Urine Negative (Negative); Nitrite Urine Negative (Negative); Protein Urine 2+ (Negative); RBC Urine Automated 0-4 /hpf (0-4); Specific Gravity Urine 1.018 (1.000-1.030); Urobilinogen Urine Negative (Negative); pH Urine 5.5 (4.5-7.5)
[2023-03-16 06:42] LABS: Urine Potassium 37.4 mmol/L
[2023-03-16 06:56] LABS: Amorphous Sediment Urine Present (None Prsent)
[2023-03-16 06:58] LABS: Bacteria Urine Automated 1+ (Negative)
[2023-03-16 08:39] LABS: Albumin Globulin Ratio 1.3 (0.9-2); Albumin Level 3.5 gm/dl (3.4-5.0); BUN Creatinine Ratio 13.2 (10-20); Bilirubin,Total 0.6 mg/dl (0.2-1.0); Calcium 8.4 mg/dl (8.6-10.3); Creatinine Clr Calc Pharmacy 31.6 ml/min; Est GFR (African American) 33.2 ml/min; Est GFR (Non-African American) 28.7 ml/min; Globulin 2.8 gm/dl (2.5-4.0); Magnesium 1.9 mg/dl (1.7-2.4); Potassium 4.3 mmol/L (3.5-5.1); Total Protein 6.3 gm/dl (6.0-8.3)
[2023-03-16] MEDS: PANTOprazole 40 MG TAB PO SCH (08:48)
[2023-03-16] MEDS: HEPARIN SOD 5,000 UNIT/0.5 ML VIAL SQ SCH ×2 (08:49→20:46)
[2023-03-16] MEDS: SODIUM CHLORIDE 0.9% 1000ML 1,000 ML IV SCH (08:49)
[2023-03-16 08:54] LABS: Basophils # (auto) 0.03 K/uL (0-0.2); Basophils % (auto) 0.8 %; Eosinophils # (auto) 0.02 K/uL (0-0.50); Eosinophils % (auto) 0.6 %; Hematocrit (blood only) 36.5 % (42.0-52.0); Hemoglobin 12.4 g/dl (14.0-18.0); Immature Granulocytes # (auto) 0.01 K/uL (0.01-0.20); Immature Granulocytes % (auto) 0.3 %; Lymphocytes # (auto) 0.99 K/uL (1.2-3.4); Lymphocytes % (auto) 27.9 %; Mean Corpuscular Volume 85.3 fL (80.0-100.0); Mean Platelet Volume 10.4 fL (9.4-12.4); Monocytes # (auto) 0.56 K/uL (0.11-0.59); Monocytes % (auto) 15.8 %; Neutrophils # (auto) 1.94 K/uL (1.40-6.50); Neutrophils % (auto) 54.6 %; Platelet Count 96 K/uL (130-400); Platelet Estimate Decreased (Normal); RBC Morphology Unremarkable; RDW Coefficient of Variation 13.8 % (11.5-14.5); RDW Standard Deviation 42.8 fL (36.4-46.3); Red Blood Count 4.28 M/uL (4.70-6.10); White Blood Count 3.55 K/ul (4.8-10.8)
--- NOTE | 2023-03-16 09:04 | Electrocardiogram Report ---
Test Reason : Blood Pressure : / mmHG Vent. Rate : 128 BPM Atrial Rate : 128 BPM P-R Int : 128 ms QRS Dur : 086 ms QT Int : 300 ms P-R-T Axes : 027 -26 009 degrees QTc Int : 438 ms Sinus tachycardia Poor R wave progression, consider anterior AK vs. lead placement vs. LVH Abnormal ECG When compared with ECG of 21-MAR-2020 10:04, Vent. rate has increased BY 67 BPM QRS axis Shifted left Criteria for Inferior infarct are no longer Present Confirmed by Larry Mondragon ([id number]) on 03/16/2023 9:03:57 AM Referred By: REFERRED SELF Confirmed By:Larry Mondragon
[2023-03-16] MEDS: DOXYCYCLINE HYCLATE 100 MG in DEXTROSE 5% 100 ML IV SCH ×2 (12:18→22:42)
[2023-03-16] MEDS: SODIUM CHLORIDE 0.45 % 1,000 ML IV SCH (17:57)
--- NOTE | 2023-03-17 00:28 | Hospitalist Progress Note ---
Date of Service March 16, 2023 Assessment & Plan Admission and Anticipated Discharge Date Admission Date: March 15, 2023 Subjective History and physical with patient's family in room to help with history. Wednesday night at 1999 patient had shivers. He had shaking chills and fever like Malaria in April 1969, [employer] [place] tour of duty. He later had same symptoms a few years later and saw PCP for attacks February 1972 required treatment of 14 days of pills. This helped with attacks but he still would get severe night sweats. As a sad aside , he was denied [facility] benefit for this illness for reasons that were not explained. 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 Integumentary: Nail beds are normal Neurologic: No further confusion. Physical Exam Physical Exam: Nontoxic, but generally weak, with improvement daily Eyes: PERRL, conjunctivae normal, anicteric sclerae ENMT: external ear and nose normal, oropharynx normal Neck: trachea midline, no thyromegaly Respiratory: normal respiratory effort, lungs clear to auscultation Cardiovascular: RRR, no murmur, no edema Gastrointestinal (Abdomen): Inspection/Auscultation: + hypoactive bowel sounds Results & Data Results & Data Vital Signs (Past 12 Hours) Vital Signs Temp Pulse Pulse Resp BP BP Pulse Ox 03/16/23 22:00 36.8 C 69 18 108/67 94 03/16/23 19:00 36.5 C 63 20 134/77 96 03/16/23 16:19 50 L 03/16/23 15:13 36.6 C 55 L 18 121/72 96 O2 Del Method 03/16/23 22:00 Room Air 03/16/23 19:00 Room Air 03/16/23 16:19 03/16/23 15:13 Room Air PG Care Time/CCT Total # of Minutes Spent Total Time Spent with Patient: Total time spent is greater than 50% in coordination of care (as documented) at patient's floor/unit and/or counseling patient: 60 Coding Level of Care Code 92789 SUB INP/OBS CARE 50MIN Diagnoses
[2023-03-17] MEDS: SODIUM CHLORIDE 0.45 % 1,000 ML IV SCH ×3 (01:38→18:16)
[2023-03-17] MEDS: PANTOprazole 40 MG TAB PO SCH (08:19)
[2023-03-17] MEDS: HEPARIN SOD 5,000 UNIT/0.5 ML VIAL SQ SCH ×2 (08:20→21:16)
[2023-03-17 08:35] LABS: Basophils # (auto) 0.02 K/uL (0-0.2); Basophils % (auto) 0.5 %; Eosinophils # (auto) 0.08 K/uL (0-0.50); Hematocrit (blood only) 36.5 % (42.0-52.0); Hemoglobin 12.3 g/dl (14.0-18.0); Lymphocytes # (auto) 1.71 K/uL (1.2-3.4); Lymphocytes % (auto) 41.8 %; Mean Corpuscular Hemoglobin 28.5 pg (25.0-34.0); Mean Corpuscular Hgb Conc 33.7 g/dL (32.0-36.0); Mean Corpuscular Volume 84.5 fL (80.0-100.0); Mean Platelet Volume 10.8 fL (9.4-12.4); Monocytes # (auto) 0.45 K/uL (0.11-0.59); Neutrophils # (auto) 1.83 K/uL (1.40-6.50); Neutrophils % (auto) 44.7 %; Platelet Count 93 K/uL (130-400); RDW Coefficient of Variation 13.8 % (11.5-14.5); RDW Standard Deviation 42.8 fL (36.4-46.3); Red Blood Count 4.32 M/uL (4.70-6.10); White Blood Count 4.09 K/ul (4.8-10.8)
[2023-03-17 08:52] LABS: Albumin Level 3.7 gm/dl (3.4-5.0); Bilirubin,Total 0.6 mg/dl (0.2-1.0); Calcium 8.8 mg/dl (8.6-10.3); Magnesium 1.9 mg/dl (1.7-2.4); Potassium 3.9 mmol/L (3.5-5.1)
[2023-03-17 08:58] LABS: Albumin Globulin Ratio 1.3 (0.9-2); Creatinine Clr Calc Pharmacy 36.4 ml/min; Est GFR (African American) 38.9 ml/min; Est GFR (Non-African American) 33.6 ml/min; Globulin 2.9 gm/dl (2.5-4.0); Total Protein 6.6 gm/dl (6.0-8.3)
--- NOTE | 2023-03-17 10:27 | Infectious Disease Consult ---
Date of Consultation March 17, 2023 Assessment & Plan (1) Febrile illness, acute: (2) Elevated LFTs: (3) Thrombocytopenia: Plan #Fevers, better #transaminitis #Acute on CKD #mild leukopenia, anemia #thrombocytopenia 73 yo M with ho CKD, HLD, HTN, BPH elevated PSAs, b/l TKAs s/p L4-5 laminectomy admitted with fevers, chills, cough. Patient has a distant history of malaria and ID was consulted for evaluation of relapse and evaluation of fever. Illness started with subjective fever, chills on 03/14. He was brought in to ED by his when he became increasingly somnolent and disoriented. On admission Denies headache, neck pain/stiffness. No known sick contacts. Febrile upon pr esentation in the ED. Does spend a lot of time outside, but has not noticed any recent tick bites or rashes. Patient has a history of malaria dating back to [place] in 1968. In ED initial temp 38.8, bradycardic, Labs notable for initial WBC 4.17 platelets 114, HgB 14.6, Cr 2.66, AST/ALT 234/212, UA trace blood, anaplasma smear negative, lyme ab negative. CXR, CT head negative. Admission Bcx NGTD Since admission, afebrile. Discussion:patient with fevers low blood counts (low platelets) and transaminitis - Highly suspicious for viral etiology, zoonotic infection vs arthropod disease. Significant improvement on doxycycline. Discussed thick/thin smears, malaria at this time highly unlikley. Tick borne workup, legionalla testing Recommend -Tick workup, added ehrlichia -Legionella ag -cmv, ebv testing -ultrasound of abdomen evaluate for liver/spleen abnl Discussed with Primary team, patient Roma Wayne MD Infectious Diseases [facility] Consultation Information Consultation was provided via telemedicine using two-way real-time interactive telecommunication between the patient and the telemedicine provider. For the duration of the visit, the provider was performing the assessment from a different facility than the patient. This includesuse of bluetooth stethoscope forauscultationperformed by the telepresenter that the telemedicine provider can hear if described in the physical exam. 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 (Phone Number For Physician Use Only) After establishing a telemedicine visit, patient was: Patient was verified with two unique identifiers, Patient/authorized rep acknowledged consent and understanding and Gave permission to continue telehealth session Time Spent with Patient: Initial => 55 min History of Present Illness Reason for Consultation: Fevers and h/o malaria Requesting Physician: Dr. Arechiga Attending Physician: Reji Aerchiga DO History of Present Illness 73 yo M with ho CKD, HLD, HTN, BPH elevated PSAs, b/l TKAs s/p L4-5 laminectomy admitted with fevers, chills, cough. Patient has a distant history of malaria and ID was consulted for evaluation of relapse and evaluation of fever. Illness started with subjective fever, chills on 03/14. He was brought in to ED by his when he became increasingly somnolent and disoriented. On admission Denies headache, neck pain/stiffness. No known sick contacts. Febrile upon prese ntation in the ED. Does spend a lot of time outside, but has not noticed any recent tick bites or rashes. Patient has a history of malaria dating back to [place] in 1968. In ED initial temp 38.8, bradycardic, Labs notable for initial WBC 4.17 platelets 114, HgB 14.6, Cr 2.66, AST/ALT 234/212, UA trace blood, anaplasma smear negative, lyme ab negative. CXR, CT head negative. Admission Bcx NGTD Since admission, afebrile. ID consulted for evaluation. I spoke with hospitalist yesterday evening and there was concern for relapsing malaria, peripheral smear negative for parasite. patient was at family gathering on Wednesday in spring, felt like symptoms "like he had in [place]" fevers/chills/disorientation. He had no ticks exposures or bites. He is concerned that he has malaria from 1968 treated with quinine. Malaria was treated at that time, He stated then in 1971 he had a "malaria attack" he took a tablet x 14 days. Since the early he has had night sweats. He hasnt been tested since then for malaria. Patient gardens bauer, no animal exposures Lots of planting. No air conditioning or water issues. No sick contacts. No rash or bites. Allergies Allergy/AdvReac Type Severity Reaction Status Date / Time bee venom protein (honey bee) Allergy Intermediate ITCHY Verified 03/15/23 21:26 venom-wasp Allergy Intermediate ITCHY Verified 03/15/23 21:26 No Known Drug Allergies Allergy nkda Verified 03/15/23 21:26 Home Medications Medication Instructions Recorded Confirmed Type multivitamin 1 tab PO QAM 12/01/18 03/15/23 History omega-3 fatty acids 1,000 mg 1,000 mg PO QAM 08/26/19 03/15/23 History capsule (Fish Oil Concentrate) atorvastatin 40 mg tablet 40 mg PO HS #90 tabs 01/22/23 03/15/23 Rx lisinopril 10 mg tablet 10 mg PO QAM #90 tabs 01/22/23 03/15/23 Rx acetaminophen 500 mg tablet 1,000 mg PO Q6H PRN Pain 03/15/23 03/15/23 History (Tylenol Extra Strength) aspirin 81 mg tablet,delayed 81 mg PO DAILY 03/15/23 03/15/23 History release omeprazole 20 mg capsule,delayed 20 mg PO DAILY 03/15/23 03/15/23 History release zinc gluconate 50 mg tablet 50 mg PO DAILY 03/15/23 03/15/23 History Patient History Medical History Amputation toe CKD (chronic kidney disease) Effusion, right knee GERD (gastroesophageal reflux disease) Hammertoe of left foot High cholesterol Hip bursitis, left History of anesthesia reaction History of prostate cancer Hypertension Left knee DJD Obesity 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, right Rotator cuff syndrome of left shoulder Surgical History History of back surgery History of carpal tunnel release of both wrists History of colonoscopy History of left knee replacement History of revision of total replacement of right knee joint (~04/08/20) History of total right knee replacement History of total shoulder replacement Hx of foot surgery Hx of prostate biopsy Family History Mother Myocardial infarction Coronary heart disease Father Prostate cancer Myocardial infarction Coronary heart disease Brother Prostate cancer Myocardial infarction Family history of diabetes mellitus Coronary heart disease Denies family history of Ovarian cancer Breast cancer Colorectal cancer Social History (Updated 09/29/22 @ 10:32 by TAMERA Allen) Smoking Status: Never smoker Tobacco Type: Smokeless Tobacco (Dip or Chew) Second Hand Exposure: No; Do You Dip or Chew Tobacco: No; Hx Alcohol Use: Yes Alcohol type: beer, wine and hard liquor Alcohol Intake Frequency: 2-3 x/Week Hx Substance Use: No Preferred Language: Algerian Communication Ability: Effective Visual Impairment: No Limitations Hearing Ability: Normal Electrical Accessories Ii Assembler Required: No Beliefs That Will Affect Care: None marital status: Current Living Situation: Spouse Current Living Situation Comment: Lives with and stepson current occupational status: retired Other Information That Helps Us Care for You: No Feels Safe at Home: Yes Safety Concerns: Feels Safe At This Time Childhood Exposure to Second-Hand Smoke: Yes Diet: regular Diet Comment: regular Dental Care, Regularly: Yes Physical Activity Frequency: Does not Exercise Seatbelt Use: sometimes Sunscreen Use: No Assistive Devices: None Results & Data Vital Signs (Past 12 Hours) Vital Signs Temp Pulse Pulse Resp BP BP Pulse Ox 03/17/23 07:11 36.5 C 55 L 16 137/77 96 03/17/23 07:00 59 L 03/17/23 03:00 36.6 C 59 L 18 118/73 98 03/17/23 00:00 54 L O2 Del Method 03/17/23 07:11 Room Air 03/17/23 07:00 03/17/23 03:00 Room Air 03/17/23 00:00 Laboratory Results Laboratory Results - last 48 hr 03/15/23 03/15/23 03/15/23 18:58 18:58 18:58 WBC 4.17 L RBC 5.09 Hgb 14.6 Hct 42.5 MCV 83.5 MCH 28.7 MCHC 34.4 RDW Std Deviation 40.3 RDW Coeff of Esau 13.2 Plt Count 114 L MPV 10.2 Immature Gran % (Auto) 0.2 Neut % (Auto) 79.5 Lymph % (Auto) 12.7 Geary % (Auto) 7.4 Eos % (Auto) 0.0 Baso % (Auto) 0.2 Neut # (Auto) 3.31 Lymph # (Auto) 0.53 L Geary # (Auto) 0.31 Eos # (Auto) 0.00 Baso # (Auto) 0.01 Immature Gran # (Auto) 0.01 Platelet Estimate RBC Morphology ESR Sodium 131 L Potassium 4.2 Chloride 99 Carbon Dioxide 22 Anion Gap 10 BUN 29 H Creatinine 2.33 H Est Cr Clr Drug Dosing Not Reportable Est GFR ( Amer) 31.0 Est GFR (Non-Af Amer) 26.7 BUN/Creatinine Ratio 12.4 Glucose 139 H Lactate Calcium 9.2 Magnesium Total Bilirubin 0.8 AST 234 H ALT 212 H Alkaline Phosphatase 149 H Total Protein 7.8 Albumin 4.3 Globulin 3.5 Albumin/Globulin Ratio 1.2 Lipase 62 Procalcitonin Urine Color Urine Appearance Urine pH Ur Specific [place] Urine Protein Urine Glucose (UA) Urine Ketones Urine Blood Urine Nitrite Urine Bilirubin Urine Urobilinogen Ur Leukocyte Esterase Urine WBC (Auto) Urine RBC (Auto) U Hyaline Cast (Auto) U Epithel Cells (Auto) Urine Bacteria (Auto) Amorphous Sediment Urine Yeast Urine Sodium Urine Potassium Urine Chloride Anaplasma Smear See Comment Lyme Disease IgG Ab Lyme Disease IgM Ab SARS-CoV-2 (PCR) Influenza Type A (PCR) Influenza Type B (PCR) RSV (RT-PCR) 03/15/23 03/15/23 03/15/23 18:59 19:57 20:09 WBC RBC Hgb Hct MCV MCH MCHC RDW Std Deviation RDW Coeff of Esau Plt Count MPV Immature Gran % (Auto) Neut % (Auto) Lymph % (Auto) Geary % (Auto) Eos % (Auto) Baso % (Auto) Neut # (Auto) Lymph # (Auto) Geary # (Auto) Eos # (Auto) Baso # (Auto) Immature Gran # (Auto) Platelet Estimate RBC Morphology ESR Sodium Potassium Chloride Carbon Dioxide Anion Gap BUN Creatinine Est Cr Clr Drug Dosing Est GFR ( Amer) Est GFR (Non-Af Amer) BUN/Creatinine Ratio Glucose Lactate 1.3 Calcium Magnesium Total Bilirubin AST ALT Alkaline Phosphatase Total Protein Albumin Globulin Albumin/Globulin Ratio Lipase Procalcitonin 1.57 H Urine Color Urine Appearance Urine pH Ur Specific [place] Urine Protein Urine Glucose (UA) Urine Ketones Urine Blood Urine Nitrite Urine Bilirubin Urine Urobilinogen Ur Leukocyte Esterase Urine WBC (Auto) Urine RBC (Auto) U Hyaline Cast (Auto) U Epithel Cells (Auto) Urine Bacteria (Auto) Amorphous Sediment Urine Yeast Urine Sodium Urine Potassium Urine Chloride Anaplasma Smear Lyme Disease IgG Ab Lyme Disease IgM Ab SARS-CoV-2 (PCR) NEGATIVE Influenza Type A (PCR) Negative Influenza Type B (PCR) Negative RSV (RT-PCR) Negative 03/15/23 03/16/23 03/16/23 20:40 06:20 06:20 WBC RBC Hgb Hct MCV MCH MCHC RDW Std Deviation RDW Coeff of Esau Plt Count MPV Immature Gran % (Auto) Neut % (Auto) Lymph % (Auto) Geary % (Auto) Eos % (Auto) Baso % (Auto) Neut # (Auto) Lymph # (Auto) Geary # (Auto) Eos # (Auto) Baso # (Auto) Immature Gran # (Auto) Platelet Estimate RBC Morphology ESR Sodium Potassium Chloride Carbon Dioxide Anion Gap BUN Creatinine Est Cr Clr Drug Dosing Est GFR ( Amer) Est GFR (Non-Af Amer) BUN/Creatinine Ratio Glucose Lactate Calcium Magnesium Total Bilirubin AST ALT Alkaline Phosphatase Total Protein Albumin Globulin Albumin/Globulin Ratio Lipase Procalcitonin Urine Color Yellow Urine Appearance Cloudy A Urine pH 5.5 Ur Specific [place] 1.018 Urine Protein 2+ H Urine Glucose (UA) Negative Urine Ketones Negative Urine Blood Trace H Urine Nitrite Negative Urine Bilirubin Negative Urine Urobilinogen Negative Ur Leukocyte Esterase Negative Urine WBC (Auto) 1-5 Urine RBC (Auto) 0-4 U Hyaline Cast (Auto) 5-10 H U Epithel Cells (Auto) 10-20 H Urine Bacteria (Auto) 1+ H Amorphous Sediment Present A Urine Yeast Not Reportable Urine Sodium 63 Urine Potassium 37.4 Urine Chloride 54 Anaplasma Smear Lyme Disease IgG Ab Negative Lyme Disease IgM Ab Negative SARS-CoV-2 (PCR) Influenza Type A (PCR) Influenza Type B (PCR) RSV (RT-PCR) 03/16/23 03/16/23 03/17/23 07:42 07:42 07:28 WBC 3.55 L 4.09 L RBC 4.28 L 4.32 L Hgb 12.4 L 12.3 L Hct 36.5 L 36.5 L MCV 85.3 84.5 MCH 29.0 28.5 MCHC 34.0 33.7 RDW Std Deviation 42.8 42.8 RDW Coeff of Esau 13.8 13.8 Plt Count 96 L 93 L MPV 10.4 10.8 Immature Gran % (Auto) 0.3 0.0 Neut % (Auto) 54.6 44.7 Lymph % (Auto) 27.9 41.8 Geary % (Auto) 15.8 11.0 Eos % (Auto) 0.6 2.0 Baso % (Auto) 0.8 0.5 Neut # (Auto) 1.94 1.83 Lymph # (Auto) 0.99 L 1.71 Geary # (Auto) 0.56 0.45 Eos # (Auto) 0.02 0.08 Baso # (Auto) 0.03 0.02 Immature Gran # (Auto) 0.01 0.00 L Platelet Estimate Decreased L RBC Morphology Unremarkable ESR Sodium 136 Potassium 4.3 Chloride 105 Carbon Dioxide 25 Anion Gap 6 BUN 29 H Creatinine 2.20 H Est Cr Clr Drug Dosing 31.6 Est GFR ( Amer) 33.2 Est GFR (Non-Af Amer) 28.7 BUN/Creatinine Ratio 13.2 Glucose 97 Lactate Calcium 8.4 L Magnesium 1.9 Total Bilirubin 0.6 AST 155 H ALT 163 H Alkaline Phosphatase 102 Total Protein 6.3 Albumin 3.5 Globulin 2.8 Albumin/Globulin Ratio 1.3 Lipase Procalcitonin Urine Color Urine Appearance Urine pH Ur Specific [place] Urine Protein Urine Glucose (UA) Urine Ketones Urine Blood Urine Nitrite Urine Bilirubin Urine Urobilinogen Ur Leukocyte Esterase Urine WBC (Auto) Urine RBC (Auto) U Hyaline Cast (Auto) U Epithel Cells (Auto) Urine Bacteria (Auto) Amorphous Sediment Urine Yeast Urine Sodium Urine Potassium Urine Chloride Anaplasma Smear Lyme Disease IgG Ab Lyme Disease IgM Ab SARS-CoV-2 (PCR) Influenza Type A (PCR) Influenza Type B (PCR) RSV (RT-PCR) 03/17/23 03/17/23 07:28 07:28 WBC RBC Hgb Hct MCV MCH MCHC RDW Std Deviation RDW Coeff of Esau Plt Count MPV Immature Gran % (Auto) Neut % (Auto) Lymph % (Auto) Geary % (Auto) Eos % (Auto) Baso % (Auto) Neut # (Auto) Lymph # (Auto) Geary # (Auto) Eos # (Auto) Baso # (Auto) Immature Gran # (Auto) Platelet Estimate RBC Morphology ESR 19 Sodium 135 L Potassium 3.9 Chloride 105 Carbon Dioxide 23 Anion Gap 7 BUN 27 H Creatinine 1.93 H Est Cr Clr Drug Dosing 36.4 Est GFR ( Amer) 38.9 Est GFR (Non-Af Amer) 33.6 BUN/Creatinine Ratio 14.0 Glucose 99 Lactate Calcium 8.8 Magnesium 1.9 Total Bilirubin 0.6 AST 106 H ALT 141 H Alkaline Phosphatase 121 H Total Protein 6.6 Albumin 3.7 Globulin 2.9 Albumin/Globulin Ratio 1.3 Lipase Procalcitonin Urine Color Urine Appearance Urine pH Ur Specific [place] Urine Protein Urine Glucose (UA) Urine Ketones Urine Blood Urine Nitrite Urine Bilirubin Urine Urobilinogen Ur Leukocyte Esterase Urine WBC (Auto) Urine RBC (Auto) U Hyaline Cast (Auto) U Epithel Cells (Auto) Urine Bacteria (Auto) Amorphous Sediment Urine Yeast Urine Sodium Urine Potassium Urine Chloride Anaplasma Smear Lyme Disease IgG Ab Lyme Disease IgM Ab SARS-CoV-2 (PCR) Influenza Type A (PCR) Influenza Type B (PCR) RSV (RT-PCR) Microbiology 03/16/23 17:44 Blood Blood Parasites Smear - Final 03/15/23 20:09 Blood Aerobic Blood Culture - Preliminary No growth in Aerobic bottle after 24 hours. 03/15/23 20:09 Blood Anaerobic Blood Culture - Preliminary No growth in Anaerobic bottle after 24 hours. 03/15/23 20:23 Blood Aerobic Blood Culture - Preliminary No growth in Aerobic bottle after 24 hours. 03/15/23 20:23 Blood Anaerobic Blood Culture - Preliminary No growth in Anaerobic bottle after 24 hours.
[2023-03-17] MEDS: DOXYCYCLINE HYCLATE 100 MG in DEXTROSE 5% 100 ML IV SCH ×2 (11:48→22:24)
--- NOTE | 2023-03-17 20:52 | Hospitalist Progress Note ---
Date of Service March 17, 2023 Assessment & Plan Admission and Anticipated Discharge Date Admission Date: March 15, 2023 Subjective Today patient has no further shaking chills or shivers. Amazingly he already feels about 75% better. Await results of work-up at this time. I spoke with infectious disease team yesterday and today. History and physical with patient's family in room to help with history. Wednesday night at 1999 patient had shivers. He had shaking chills and fever like Malaria in April 1969, [employer] [place] tour of duty. He later had same symptoms a few years later and saw PCP for attacks February 1972 required treatment of 14 days of pills. This helped with attacks but he still would get severe night sweats. As a sad aside , he was denied [place] benefit for this illness for reasons that were not explained. 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 4) Round up the usual suspects Empiric treatment with Doxycycline Might add Quinine Consult Infectious disease Dr Roma Wayne ID connect [phone] High level inpatient Subsequent 60 minutes Physical Exam Constitutional: WD/WN, vitals as above Eyes: PERRL, conjunctivae normal, anicteric sclerae ENMT: external ear and nose normal, oropharynx normal Neck: trachea midline, no thyromegaly Respiratory: normal respiratory effort, lungs clear to auscultation Gastrointestinal (Abdomen): normal bowel sounds, soft, nontender, no hepatosplenomegaly Skin: no rashes, warm and dry Neurologic: patellar DTR's 2+ bilat, sensation intact Psychiatric: A+Ox3, euthymic affect Lymphatic: no cervical or axillary lymphadenopathy Results & Data Results & Data Vital Signs (Past 12 Hours) Vital Signs Temp Pulse Pulse Resp BP Pulse Ox O2 Del Method 03/17/23 19:00 36.6 C 64 18 133/78 94 Room Air 03/17/23 14:14 56 L 03/17/23 15:00 36.7 C 64 18 108/72 95 Room Air 03/17/23 11:04 36.7 C 55 L 16 138/82 98 Room Air Medications Administered Doxycycline PG Care Time/CCT Total # of Minutes Spent Total Time Spent with Patient: Total time spent is greater than 50% in coordination of care (as documented) at patient's floor/unit and/or counseling patient: Critical Care Time 42 Coding Level of Care Code 92679 SUB INP/OBS CARE 2/35MIN Diagnoses Time Spent (min) 42
[2023-03-18] MEDS: SODIUM CHLORIDE 0.45 % 1,000 ML IV SCH ×3 (01:58→18:13)
--- NOTE | 2023-03-18 07:49 | Infectious Disease Progress Nt ---
Date of Service March 18, 2023 24 hours No acute events Afebrile, heart rate in 50s No new Micro Assessment & Plan (1) Febrile illness, acute: (2) Elevated LFTs: (3) Thrombocytopenia: Plan #Fevers, better #transaminitis #Acute on CKD #mild leukopenia, anemia #thrombocytopenia 73 yo M with ho CKD, HLD, HTN, BPH elevated PSAs, b/l TKAs s/p L4-5 laminectomy admitted with fevers, chills, cough. Patient has a distant history of malaria and ID was consulted for evaluation of relapse and evaluation of fever. Illness started with subjective fever, chills on 03/14. He was brought in to ED by his when he became increasingly somnolent and disoriented. On admission Denies headache, neck pain/stiffness. No known sick contacts. Febrile upon presentation in the ED. Does spend a lot of time outside, but has not noticed any recent tick bites or rashes. Patient has a history of malaria dating back to [place] in 1968. In ED initial temp 38.8, bradycardic, Labs notable for initial WBC 4.17 platelets 114, HgB 14.6, Cr 2.66, AST/ALT 234/212, UA trace blood, anaplasma smear negative, lyme ab negative. CXR, CT head negative. Admission Bcx NGTD Since admission, afebrile. Ultrasound shows some hepatic steatosos but no splenomegay Discussion:patient with fevers low blood counts (low platelets) and transaminitis - Highly suspicious for viral etiology, zoonotic infection vs arthropod disease. Significant improvement on doxycycline. Discussed thick/thin smears, malaria at this time highly unlikley. Tick borne workup, legionalla testing Recommend -Tick workup, added ehrlichia -Legionella ag -cmv, ebv testing -At this time, given his imrpoved labs and he has been fever free for 48 hours, would favor 14 day course of Doxycycline, can change to 100mg po BID to complete 14 days Discussed taking with food and avoiding dairy, magnesium within 2 hours before/after and sun avoidance. Recommend he follow up with PMD next week to repeat labs CBC, CMP to ensure continued improvement and follow up to tick testing results Will d/w Primary team Roma Wayne MD Infectious Diseases [facility] Admission and Anticipated Discharge Date Admission Date: March 15, 2023 Subjective Subsequent visit was provided via telemedicine using two-way real-time interactive telecommunication between the patient and the telemedicine provider. For the duration of the visit, the provider was performing the assessment from a different facility than the patient. This includesuse of bluetooth stethoscope forauscultationperformed by the telepresenter that the telemedicine provider can hear if described in the physical exam. Pathology Laboratory Director contact information: Please call [facility] Call Center . (Phone Number For Physician Use Only) After establishing a telemedicine visit, patient was: Patient was verified with two unique identifiers, Patient/authorized rep acknowledged consent and understanding and Gave permission to continue telehealth session Time Spent with Patient: Subsequent => 25 min Patient feels well, no fevers body aches, diarrhea ROS is negative No skin changes Ultrasound completed Physical Exam Physical Exam: NAD CTAB Soft NT ND No rash Results & Data Vital Signs (Past 12 Hours) Vital Signs Temp Pulse Pulse Resp BP BP Pulse Ox 03/18/23 03:00 36.6 C 59 L 18 137/84 96 03/18/23 00:00 53 L 03/17/23 22:00 36.8 C 67 20 142/49 H 96 O2 Del Method 03/18/23 03:00 Room Air 03/18/23 00:00 03/17/23 22:00 Room Air Laboratory Results Laboratory Results - last 48 hr 03/17/23 03/17/23 03/17/23 07:28 07:28 07:28 WBC 4.09 L RBC 4.32 L Hgb 12.3 L Hct 36.5 L MCV 84.5 MCH 28.5 MCHC 33.7 RDW Std Deviation 42.8 RDW Coeff of [place]au 13.8 Plt Count 93 L MPV 10.8 Immature Gran % (Auto) 0.0 Neut % (Auto) 44.7 Lymph % (Auto) 41.8 [place] % (Auto) 11.0 Eos % (Auto) 2.0 Baso % (Auto) 0.5 Neut # (Auto) 1.83 Lymph # (Auto) 1.71 [place] # (Auto) 0.45 Eos # (Auto) 0.08 Baso # (Auto) 0.02 Immature Gran # (Auto) 0.00 L ESR 19 Sodium 135 L Potassium 3.9 Chloride 105 Carbon Dioxide 23 Anion Gap 7 BUN 27 H Creatinine 1.93 H Est Cr Clr Drug Dosing 36.4 Est GFR ( Amer) 38.9 Est GFR (Non-Af Amer) 33.6 BUN/Creatinine Ratio 14.0 Glucose 99 Calcium 8.8 Magnesium 1.9 Total Bilirubin 0.6 AST 106 H ALT 141 H Alkaline Phosphatase 121 H Total Protein 6.6 Albumin 3.7 Globulin 2.9 Albumin/Globulin Ratio 1.3 03/18/23 03/18/23 07:52 07:52 WBC 4.22 L RBC 4.08 L Hgb 11.8 L Hct 35.2 L MCV 86.3 MCH 28.9 MCHC 33.5 RDW Std Deviation 43.8 RDW Coeff of [place] 13.9 Plt Count 104 L MPV 10.7 Immature Gran % (Auto) 0.2 Neut % (Auto) 46.2 Lymph % (Auto) 42.7 [place] % (Auto) 8.5 Eos % (Auto) 1.9 Baso % (Auto) 0.5 Neut # (Auto) 1.95 Lymph # (Auto) 1.80 [place] # (Auto) 0.36 Eos # (Auto) 0.08 Baso # (Auto) 0.02 Immature Gran # (Auto) 0.01 ESR Sodium 138 Potassium 4.1 Chloride 107 Carbon Dioxide 25 Anion Gap 6 BUN 24 H Creatinine 1.91 H Est Cr Clr Drug Dosing 36.5 Est GFR ( Amer) 39.4 Est GFR (Non-Af Amer) 34.0 BUN/Creatinine Ratio 12.6 Glucose 86 Calcium 8.9 Magnesium 1.9 Total Bilirubin 0.6 AST 74 H ALT 117 H Alkaline Phosphatase 110 H Total Protein 6.4 Albumin 3.5 Globulin 2.9 Albumin/Globulin Ratio 1.2 Diagnostic Findings Chest X-Ray 03/15/23 18:54 XR chest 1V not portable HISTORY: 73 years-old Male cough acute cough with shortness of breath COMPARISON: 12/08/2018 TECHNIQUE: AP view the chest FINDINGS: Cardiac silhouette is enlarged. No pneumothorax, pleural effusion, airspace consolidation or pulmonary edema. Degenerative changes of the spine and left shoulder. Right shoulder arthroplasty. IMPRESSION: Cardiomegaly without acute process. ACT 112: Negative or not required by law. The above report was generated using voice recognition software. It may contain grammatical, syntax or spelling errors. Electronically signed by: Jeremy Contreras M.D. 03/15/2023 7:[address] 03/15/23 23:39 Exam(s): CT HEAD Without Contrast EXAM: CT Head Without Intravenous Contrast CLINICAL HISTORY: Reason for exam: Altered Mental Status. TECHNIQUE: Axial computed tomography images of the head/brain without intravenous contrast. CTDI is 36.97 mGy and DLP is 625.8 mGy-cm. Automated exposure control was utilized for the study. A dose lowering technique was utilized adhering to the principles of ALARA. COMPARISON: None. FINDINGS: Brain: Mild generalized brain atrophy. Slight decreased attenuation within the deep white matter compatible with mild microangiopathic white matter disease. No hemorrhage. Ventricles: Unremarkable. No ventriculomegaly. Bones/joints: Unremarkable. No acute fracture. Soft tissues: Unremarkable. Sinuses: Unremarkable as visualized. No acute sinusitis. Mastoid air cells: Unremarkable as visualized. No mastoid effusion. IMPRESSION: Chronic changes as described. No acute intracranial hemorrhage or space- occupying lesion. Electronically signed by: Arlyn Puentes MD 03/16/23 01:25 AM Abdomen Ultrasound 03/18/23 05:15 ULTRASOUND OF THE LIVER AND SPLEEN CLINICAL HISTORY: Elevated hepatic transaminases. Thrombocytopenia. COMPARISON STUDY: No priors. TECHNIQUE: Real-time, grayscale, and color flow sonography of the liver and spl een was performed. Images are reviewed in the transverse and longitudinal planes. FINDINGS: Liver: The liver is mildly enlarged measuring over 18 cm in length. Echotexture is heterogeneously increased indicating steatosis. There is no intrahepatic biliary ductal dilatation. The main portal vein is patent. The gallbladder is normal as visualized. Spleen: The spleen is normal in size and echotexture, measuring 12.3 cm in length. Upper abdomen: Survey images of the kidneys show cortical lateral view. There is no hydronephrosis. A 1.0 cm cyst is noted on the right. Ascites: None. IMPRESSION: 1. The liver is mildly enlarged and steatotic. 2. The spleen is normal in size and echotexture. ACT 112: Negative or not required by law. Electronically signed by: Shmuel Sánchez M.D. 03/18/2023 8:42 AM Medications Administered Current Inpatient Medications Heparin Sodium (Porcine) (Heparin Sod 5,000 Unit/0.5 Ml Vial) 5,000 units SQ Q12 JOSÉ ANTONIO Stop: 04/15/23 08:59 Last Admin: 03/18/23 08:43 Dose: 5,000 units Doxycycline Hyclate 100 mg/ (Dextrose) 110 mls @ 50 mls/hr IV Q12H JOSÉ ANTONIO Stop: 03/30/23 10:59 Last Infusion: 03/18/23 00:25 Dose: Infused Sodium Chloride (1/2 Nss) 1,000 mls @ 125 mls/hr IV .Q8H JOSÉ ANTONIO Stop: 04/15/23 17:14 Last Admin: 03/18/23 10:21 Dose: 125 mls/hr Pantoprazole Sodium (Pantoprazole 40 Mg Tab) 40 mg PO DAILY JOSÉ ANTONIO Stop: 04/15/23 08:59 Last Admin: 03/18/23 08:43 Dose: 40 mg Polyethylene Glycol (Polyethylene (Miralax) 17 Gm Pack) 17 gm PO DAILY PRN PRN Reason: Constipation Stop: 04/15/23 01:29
[2023-03-18 08:40] LABS: Basophils # (auto) 0.02 K/uL (0-0.2); Basophils % (auto) 0.5 %; Eosinophils # (auto) 0.08 K/uL (0-0.50); Eosinophils % (auto) 1.9 %; Hematocrit (blood only) 35.2 % (42.0-52.0); Hemoglobin 11.8 g/dl (14.0-18.0); Immature Granulocytes # (auto) 0.01 K/uL (0.01-0.20); Immature Granulocytes % (auto) 0.2 %; Lymphocytes % (auto) 42.7 %; Mean Corpuscular Hemoglobin 28.9 pg (25.0-34.0); Mean Corpuscular Hgb Conc 33.5 g/dL (32.0-36.0); Mean Corpuscular Volume 86.3 fL (80.0-100.0); Mean Platelet Volume 10.7 fL (9.4-12.4); Monocytes # (auto) 0.36 K/uL (0.11-0.59); Monocytes % (auto) 8.5 %; Neutrophils # (auto) 1.95 K/uL (1.40-6.50); Neutrophils % (auto) 46.2 %; Platelet Count 104 K/uL (130-400); RDW Coefficient of Variation 13.9 % (11.5-14.5); RDW Standard Deviation 43.8 fL (36.4-46.3); Red Blood Count 4.08 M/uL (4.70-6.10); White Blood Count 4.22 K/ul (4.8-10.8)
[2023-03-18] MEDS: PANTOprazole 40 MG TAB PO SCH (08:43)
[2023-03-18] MEDS: HEPARIN SOD 5,000 UNIT/0.5 ML VIAL SQ SCH (08:43)
--- NOTE | 2023-03-18 08:45 | Ultrasound Report ---
ULTRASOUND OF THE LIVER AND SPLEEN CLINICAL HISTORY: Elevated hepatic transaminases. Thrombocytopenia. COMPARISON STUDY: No priors. TECHNIQUE: Real-time, grayscale, and color flow sonography of the liver and spleen was performed. Hailey ges are reviewed in the transverse and longitudinal planes. FINDINGS: Liver: The liver is mildly enlarged measuring over 18 cm in length. Echotexture is heterogeneously in creased indicating steatosis. There is no intrahepatic biliary ductal dilatation. The main portal vei n is patent. The gallbladder is normal as visualized. Spleen: The spleen is normal in size and echotexture, measuring 12.3 cm in length. Upper abdomen: Survey images of the kidneys show cortical lateral view. There is no hydronephrosis. A 1.0 cm cyst is noted on the right. Ascites: None. IMPRESSION: 1. The liver is mildly enlarged and steatotic. 2. The spleen is normal in size and echotexture. ACT 112: Negative or not required by law. Electronically signed by: Shmuel Sánchez M.D. 03/18/2023 8:42 AM
[2023-03-18 09:07] LABS: Est GFR (African American) 39.4 ml/min; Potassium 4.1 mmol/L (3.5-5.1)
[2023-03-18 09:08] LABS: Albumin Globulin Ratio 1.2 (0.9-2); Albumin Level 3.5 gm/dl (3.4-5.0); BUN Creatinine Ratio 12.6 (10-20); Bilirubin,Total 0.6 mg/dl (0.2-1.0); Calcium 8.9 mg/dl (8.6-10.3); Creatinine Clr Calc Pharmacy 36.5 ml/min; Globulin 2.9 gm/dl (2.5-4.0); Magnesium 1.9 mg/dl (1.7-2.4); Total Protein 6.4 gm/dl (6.0-8.3)
[2023-03-18] MEDS: DOXYCYCLINE HYCLATE 100 MG in DEXTROSE 5% 100 ML IV SCH (12:32)
--- NOTE | 2023-03-18 17:01 | Discharge Summary ---
Date of Service March 18, 2023 Admission HPI Per Admitting Provider 73 year old male with a past medical history of stage 3 CKD, HLD, HTN, BPH. Has been sick since Wednesday evening. Subjective fever, chills,, cough. Yesterday was tired and slept most of the day. noticed that he was a little disoriented today and that he had some weakness. Denies headache, neck pain/stiffness. No known sick contacts. Febrile upon presentation in the ED. Does spend a lot of time outside, but has not noticed any recent tick bites or rashes. ED work up is significant for negative lactate, CBC with mild leukopenia, thrombocytopenia, mild JHOAN, elevated LFTs. Positive procal. CXR unremarkable. C OVID, flu, RSV testing was negative.Negative anaplasmosis smear and Lyme testing was negative. Anaplasmosis DNA pending. Was given a low dose of ibuprofen for fever. IV doxycycline started . Was hypertensive upon admission, became hypotensive with blood pressures 90s/60s, given 1.5L fluid bolus. Discharge Data Allergies Allergy/AdvReac Type Severity Reaction Status Date / Time bee venom protein (honey bee) Allergy Intermediate ITCHY Verified 03/15/23 21:26 venom-wasp Allergy Intermediate ITCHY Verified 03/15/23 21:26 No Known Drug Allergies Allergy nkda Verified 03/15/23 21:26 Consultations 03/16/23 15:56 Consult Infectious Diseases Routine Ordered Studies 03/15/23 23:[address] [CT head/brain wo con] Routine 03/18/23 05:15 US abdomen limited Urgent Discharge Plan Discharge Items Patient Disposition: Home - Self-Care Reason For Visit: AMS Discharge Diagnosis: infection Activity: Resume your previous activity Non-emergency contact: Primary Care Provider Call non-emergency contact if: you have any medication questions Follow-up/Referrals: Erick Jane DO [Primary Care Provider] - Diet: Regular Addtl Attending Provider Instructions: Thankfully you improved over your hospital course, your blood work has improved and you have been fever free for 48 hours. We will recommend a 14 day course of Doxycycline. can change to 100mg po BID. Please take with food and avoiding dairy, magnesium within 2 hours before/after taking this medicine and also avoid the sun during the next 12 days. Recommend you follow up with your Primary Care Doctor next week to repeat labs CBC, CMP to ensure continued improvement and follow up to tick testing results Given your blood pressure being slightly lower, we will hold your lisinopril for now. This may be resumed once you see your Primary care doctor. Pending Studies at Discharge: No Stand-Alone Forms: My [facility], Smoking Cessation Medications and DC Order Prescriptions: New doxycycline hyclate 100 mg capsule 100 mg PO DAILY Qty: 24 0RF Rx Instructions: Take next dose at 10 pm, and then twice a day at regular times morning and evening. Continued atorvastatin 40 mg tablet 40 mg PO HS Qty: 90 1RF omega-3 fatty acids [Fish Oil Concentrate] 1,000 mg capsule 1,000 mg PO QAM multivitamin Tablet 1 tab PO QAM aspirin [Aspir-Low] 81 mg Tablet,Delayed Release (Dr/Ec) 81 mg PO DAILY acetaminophen [Tylenol Extra Strength] 500 mg Tablet 1,000 mg PO Q6H PRN (Reason: Pain) zinc gluconate 50 mg Tablet 50 mg PO DAILY omeprazole 20 mg capsule,delayed release(DR/EC) 20 mg PO DAILY Discontinued lisinopril 10 mg tablet 10 mg PO QAM Qty: 90 1RF Discharge Orders: Discharge Order (Routine); Ordered 03/18/23 Ordered By: Jose Randall Admission Data Admit Date/Time: 03/15/23 22:52 Attending Provider: Jose Randall Admit Provider: Mar Okeefe Primary Care Provider: Erick Jane Other Providers: Ana Rosa Limon Coding Diagnoses
[2023-03-22 15:52] LABS: CMV IgG Antibody <0.60 U/mL; CMV IgM Antibody <30.00 AU/mL
[2023-03-22 16:47] LABS: Epstein Barr Virus Early Ag Ab <9.00 U/mL
[2023-03-22 21:42] LABS: Ehrlichia chaff IgG Ab <1:64 (<1:64); Ehrlichia chaff IgM Ab <1:20 (<1:20)
== END 2023-03-18 18:20 | disposition home or self-care (01) ==
LOC: ED 18:41 → SUATTDRO 22:52 → 2N 22:52 → INTOOBSV 22:52 → 2N 03-17 00:31